=== PATIENT | female | born 2000 | race Caucasian/White ===

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

== ENCOUNTER 2020-03-10 16:55 | Emergency (ER) | payer OTHER ==
[2020-03-10 17:18] VITALS: BP 125/69; PULSE 116; RESP 18; TEMP 98.8
[2020-03-10] MEDS ORDERED: ONDANSETRON 4 MG/2 ML VIAL IVP STA (17:26)
[2020-03-10] MEDS ORDERED: CAPSAICIN 0.025% CREAM 60 GM TUBE TOPICAL STA (17:26)
[2020-03-10] MEDS ORDERED: SODIUM CHLORIDE 0.9% 1,000 ML IV ONE (17:26)
[2020-03-10] MEDS ORDERED: LORazepam 2 MG/ML INJ IV STA (17:26)
[2020-03-10] MEDS ORDERED: PANTOPRAZOLE 40 MG/10 ML VIAL IVP STA (17:27)
[2020-03-10] MEDS ORDERED: SODIUM CHLORIDE 0.9% 1,000 ML IV SCH (17:30)
--- NOTE | 2020-03-10 17:57 | ED ---
Abdominal Pain HPI - General Chief Complaint: Abdominal Pain Stated Complaint: Vomiting/nausea/syncope Time Seen by Provider: 03/10/20 17:20 Source: patient Mode of arrival: ambulatory Limitations: no limitations - History of Present Illness Initial Comments: 19yo female presenting for cc of vomiting. pt states for the past year she has has vomiting episodes on and off. Patient states she began vomiting this morning she states her throat hurts from vomiting she states it looks like bile she denies blood in her vomit. Patient denies localized abdominal pain fevers. Patient denies . Patient states that she is on dyclomine as prescribed by her GI physician for possible cyclic vomiting syndrome. Patient states she is also on omeprazole.Pt sates she vomited so much she felt like passing out. pt denies chest pain, dyspnea, leg swelling. Patient has no additional complaints. upon arrival she appears well nontoxic on in no acute distress. - Related Data Home Medications Medication Instructions Recorded Confirmed Ibuprofen [Motrin Ib] 400 mg PO Q8H PRN 05/18/19 07/25/19 Norelgestromin/Ethin.estradiol 1 patch TRANSDERM SIMS 05/18/19 07/25/19 [Xulane Patch] Ondansetron Odt [Zofran Odt] 4 mg PO Q8HR 07/20/19 07/25/19 Allergies Allergy/AdvReac Type Severity Reaction Status Date / Time No Known Allergies Allergy Verified 03/10/20 17:18 Review of Systems ROS Statement: Those systems with pertinent positive or pertinent negative responses have been documented in the HPI. ROS Other: All systems not noted in ROS Statement are negative. Past Medical History Past Medical History: GERD/Reflux Additional Past Medical History / Comment(s): Bouts of nausea, vomiting for past year; Constipation, diarrhea alternates. IBS History of Any Multi-Drug Resistant Organisms: None Reported Past Surgical History: No Surgical Hx Reported Past Anesthesia/Blood Transfusion Reactions: No Reported Reaction Additional Past Anesthesia/Blood Transfusion Reaction / Comment(s): no previous anesthesia Past Psychological History: ADD/ADHD, Anxiety, Depression Smoking Status: Never smoker Past Alcohol Use History: None Reported Past Drug Use History: Marijuana - Past Family History Mother Family Medical History: No Reported History General Exam - General Exam Comments Initial Comments: General: The patient is awake and alert Eye: Pupils are equal, round and reactive to light, extra-ocular movements are intact. No nystagmus. There is normal conjunctiva bilaterally. No signs of icterus. Cardiovascular: There is a regular rate and rhythm. No murmur, rub or gallop is appreciated. Respiratory: Lungs are clear to auscultation, respirations are non-labored, breath sounds are equal. No wheezes, stridor, rales, or rhonchi. Gastrointestinal: Soft, non-distended, diffusely tender abdomen without masses or organomegaly noted. There is no rebound or guarding present. Dry heavng Musculoskeletal: Normal ROM, no tenderness. Strength 5/5. Sensation intact. Pulses equal bilaterally 2+. Neurological: A&O x 3. CN II-XII intact grossly, There are no obvious motor or sensory deficits. Coordination appears grossly intact. Speech is normal. Skin: Skin is warm and dry and no rashes or lesions are noted. Psychiatric: Cooperative, appropriate mood & affect, normal judgment. Limitations: no limitations Course Vital Signs 03/10/20 17:14 Temperature 98.8 F Pulse Rate 116 H Respiratory 18 Rate Blood Pressure 125/69 O2 Sat by Pulse 98 Oximetry Medical Decision Making - Medical Decision Making evaluated. exam performed. pt left AMA, did not even begin labs or required further evaluation. pt was gone and had signed paper work before I was aware she even wanted to leave AMA Disposition Clinical Impression: Vomiting Disposition: Left Against Medical Advice Condition: Undetermined Is patient prescribed a controlled substance at d/c from ED?: No Referrals: None,Stated [Primary Care Provider] - 1-2 days Time of Disposition: 17:57
== END 2020-03-10 17:54 | disposition left against medical advice (07) ==
LOC: EC 16:55
DX: R11.10 Vomiting, unspecified (principal); K21.9 Gastro-esophageal reflux disease without esophagitis; Z79.899 Other long term (current) drug therapy; Z53.29 Procedure and treatment not carried out because of patient's decision for other reasons
CPT/HCPCS: 99283

== ENCOUNTER 2020-03-13 08:21 | Emergency (ER) | payer OTHER ==
[2020-03-13 08:28] VITALS: RESP 18; TEMP 98.5
[2020-03-13] MEDS ORDERED: ONDANSETRON 4 MG/2 ML VIAL IVP STA (08:51)
[2020-03-13] MEDS ORDERED: SODIUM CHLORIDE 0.9% 1,000 ML IV STA (08:51)
--- NOTE | 2020-03-13 09:11 | ED ---
Nausea/Vomiting/Diarrhea HPI - General Chief complaint: Nausea/Vomiting/Diarrhea Stated complaint: syncope-revisit Time Seen by Provider: 03/13/20 08:40 Source: patient Mode of arrival: ambulatory Limitations: no limitations - History of Present Illness Initial comments: Patient is a 19-year-old female with history of IBS and GERD, presenting to the emergency Department with complaints of nausea and vomiting since yesterday. Patient states she's been having some diarrhea as well. Patient states she's been taking her GERD medication every morning but forgets to take her medication for diarrhea, I'm assuming is Imodium. She admits to some generalized abdominal cramping, no specific areas of pain. No fever or chills. She is also complaining of right hand pain after she got angry and punched a board last night, and wants this to be checked. She has some bruising and swelling to this area. She denies any previous fractures of her right hand. Patient has no further complaints at this time. She denies any chest pain or shortness of breath. Upon arrival to the ER, her vital signs are stable. - Related Data Home Medications Medication Instructions Recorded Confirmed Norelgestromin/Ethin.estradiol 1 patch TRANSDERM SIMS 05/18/19 03/13/20 [Xulane Patch] Dicyclomine [Bentyl] 10 mg PO QID 03/13/20 03/13/20 Omeprazole [PriLOSEC] 20 mg PO AC-BRKFST 03/13/20 03/13/20 Allergies Allergy/AdvReac Type Severity Reaction Status Date / Time No Known Allergies Allergy Verified 03/13/20 09:26 Review of Systems ROS Statement: Those systems with pertinent positive or pertinent negative responses have been documented in the HPI. ROS Other: All systems not noted in ROS Statement are negative. Past Medical History Past Medical History: GERD/Reflux Additional Past Medical History / Comment(s): Bouts of nausea, vomiting for past year; Constipation, diarrhea alternates. IBS History of Any Multi-Drug Resistant Organisms: None Reported Past Surgical History: No Surgical Hx Reported Past Anesthesia/Blood Transfusion Reactions: No Reported Reaction Additional Past Anesthesia/Blood Transfusion Reaction / Comment(s): no previous anesthesia Past Psychological History: ADD/ADHD, Anxiety, Depression Smoking Status: Never smoker Past Alcohol Use History: None Reported Past Drug Use History: Marijuana - Past Family History Mother Family Medical History: No Reported History General Exam - General Exam Comments Initial Comments: GENERAL: Patient is well-developed and well-nourished. Patient is nontoxic and in no acute distress. HEAD: Atraumatic, normocephalic. EYES: Pupils equal round and reactive to light, extraocular movements intact, sclera anicteric, conjunctiva are normal. Eyelids were unremarkable. ENT: TMs normal, nares patent, oropharynx clear without exudates. Moist mucous membranes. NECK: Normal range of motion, supple without lymphadenopathy or JVD. LUNGS: Unlabored respirations. Breath sounds clear to auscultation bilaterally and equal. No wheezes rales or rhonchi. HEART: Regular rate and rhythm without murmurs, rubs or gallops. ABDOMEN: Generalized abdominal discomfort, no specific area pain. Soft, normoactive bowel sounds. No guarding, no rebound. No masses appreciated. : Deferred MUSCULOSKELETAL: Mild pain with palpation over the fourth and fifth metacarpal, there is some mild swelling and bruising present as well. She has full active right-hand range of motion. Neurovascular intact. Normal extremities with adequate s trength and normal range of motion, no pitting or edema. No clubbing or cyanosis. NEUROLOGICAL: Patient is alert and oriented x 3. Motor and sensory are also intact. Cranial nerves II through XII grossly intact. Symmetrical smile. Normal speech, normal gait. PSYCH: Normal mood, normal affect. SKIN: Warm, Dry, normal turgor, no rashes or lesions noted. Limitations: no limitations Course Vital Signs 03/13/20 03/13/20 08:25 10:00 Temperature 98.5 F Pulse Rate 96 70 Respiratory 18 18 Rate Blood Pressure 125/92 122/78 O2 Sat by Pulse 99 100 Oximetry Medical Decision Making - Medical Decision Making Patient is a 19-year-old female with history of IBS and GERD presenting with nausea and vomiting since yesterday as well as continued diarrhea. She does follow with a GI specialist to this, she forgets to take Imodium for the diarrhea, no hematochezia. No fevers, her vitals are stable. She is also complaining of right hand pain after punching a piece of wood last night. X- rays of the right hand reveal no acute fractures dislocations. Labs show slight leukocytosis at 13.8, this is most likely reactive, hemoglobin is 9.9 which is lower than her baseline, she denies any hematochezia. Rest of her labs are normal, urine shows no evidence of infection, 2+ ketones. I did give patient 1 L bolus of fluids and Zofran, she does report improvement in her symptoms. I did recommend continuing with Imodium for her diarrhea as well as omeprazole for the GERD. I did recommend following up with her GI doctor, Dr. Li. She is in agreement. She is stable for discharge. Return parameters were discussed with the patient she verbalized understanding. Case discussed with Dr. Little. - Lab Data Result diagrams: 03/13/20 08:56 03/13/20 08:56 Lab Results 03/13/20 03/13/20 03/13/20 Range/Units 08:56 08:56 08:56 WBC 13.8 H (4.0-11.0) k/uL RBC 4.50 (3.80-5.40) m/uL Hgb 9.9 L (11.4-16.0) gm/dL Hct 32.7 L (34.0-46.0) % MCV 72.5 L (80.0-100.0) fL MCH 22.1 L (25.0-35.0) pg MCHC 30.4 L (31.0-37.0) g/dL RDW 17.5 H (11.5-15.5) % Plt Count 608 H (150-450) k/uL MPV 6.7 Neutrophils % 83 % Lymphocytes % 9 % Monocytes % 5 % Eosinophils % 1 % Basophils % 0 % Neutrophils # 11.5 H (1.3-7.7) k/uL Lymphocytes # 1.2 (1.0-4.8) k/uL Monocytes # 0.7 (0-1.0) k/uL Eosinophils # 0.1 (0-0.7) k/uL Basophils # 0.0 (0-0.2) k/uL Hypochromasia Marked Poikilocytosis Slight Anisocytosis Slight Microcytosis Moderate Sodium 135 L (137-145) mmol/L Potassium 3.5 (3.5-5.1) mmol/L Chloride 102 (98-107) mmol/L Carbon Dioxide 24 (22-30) mmol/L Anion Gap 9 mmol/L BUN 13 (7-17) mg/dL Creatinine 0.67 (0.52-1.04) mg/dL Est GFR (CKD-EPI)AfAm >90 (>60 ml/min/1.73 sqM) Est GFR (CKD-EPI)NonAf >90 (>60 ml/min/1.73 sqM) Glucose 96 (74-99) mg/dL Calcium 9.3 (8.4-10.2) mg/dL Total Bilirubin 0.5 (0.2-1.3) mg/dL AST 25 (14-36) U/L ALT 17 (4-34) U/L Alkaline Phosphatase 46 (38-126) U/L Total Protein 7.3 (6.3-8.2) g/dL Albumin 4.0 (3.5-5.0) g/dL Urine Color Yellow Urine Appearance Cloudy H (Clear) Urine pH 6.0 (5.0-8.0) Ur Specific [place] 1.022 (1.001-1.035) Urine Protein Trace H (Negative) Urine Glucose (UA) Negative (Negative) Urine Ketones 2+ H (Negative) Urine Blood Negative (Negative) Urine Nitrite Negative (Negative) Urine Bilirubin Negative (Negative) Urine Urobilinogen <2.0 (<2.0) mg/dL Ur Leukocyte Esterase Negative (Negative) Urine RBC 4 (0-5) /hpf Urine WBC 2 (0-5) /hpf Ur Squamous Epith Cells 8 H (0-4) /hpf Urine Bacteria Occasional H (None) /hpf Urine Mucus Few H (None) /hpf Urine HCG, Qual (Not Detectd) 03/13/20 Range/Units 08:56 WBC (4.0-11.0) k/uL RBC (3.80-5.40) m/uL Hgb (11.4-16.0) gm/dL Hct (34.0-46.0) % MCV (80.0-100.0) fL MCH (25.0-35.0) pg MCHC (31.0-37.0) g/dL RDW (11.5-15.5) % Plt Count (150-450) k/uL MPV Neutrophils % % Lymphocytes % % Monocytes % % Eosinophils % % Basophils % % Neutrophils # (1.3-7.7) k/uL Lymphocytes # (1.0-4.8) k/uL Monocytes # (0-1.0) k/uL Eosinophils # (0-0.7) k/uL Basophils # (0-0.2) k/uL Hypochromasia Poikilocytosis Anisocytosis Microcytosis Sodium (137-145) mmol/L Potassium (3.5-5.1) mmol/L Chloride (98-107) mmol/L Carbon Dioxide (22-30) mmol/L Anion Gap mmol/L BUN (7-17) mg/dL Creatinine (0.52-1.04) mg/dL Est GFR (CKD-EPI)AfAm (>60 ml/min/1.73 sqM) Est GFR (CKD-EPI)NonAf (>60 ml/min/1.73 sqM) Glucose (74-99) mg/dL Calcium (8.4-10.2) mg/dL Total Bilirubin (0.2-1.3) mg/dL AST (14-36) U/L ALT (4-34) U/L Alkaline Phosphatase (38-126) U/L Total Protein (6.3-8.2) g/dL Albumin (3.5-5.0) g/dL Urine Color Urine Appearance (Clear) Urine pH (5.0-8.0) Ur Specific [place] (1.001-1.035) Urine Protein (Negative) Urine Glucose (UA) (Negative) Urine Ketones (Negative) Urine Blood (Negative) Urine Nitrite (Negative) Urine Bilirubin (Negative) Urine Urobilinogen (<2.0) mg/dL Ur Leukocyte Esterase (Negative) Urine RBC (0-5) /hpf Urine WBC (0-5) /hpf Ur Squamous Epith Cells (0-4) /hpf Urine Bacteria (None) /hpf Urine Mucus (None) /hpf Urine HCG, Qual Not Detected (Not Detectd) Disposition Clinical Impression: Dehydration, Vomiting Disposition: HOME SELF-CARE Condition: Stable Instructions (If sedation given, give patient instructions): Acute Nausea and Vomiting (ED) Additional Instructions: Please return to the Emergency Department if symptoms worsen or any other concerns. May take zofran for additional nausea. Remember to take your home meds. Follow-up with your GI specialist as discussed. Is patient prescribed a controlled substance at d/c from ED?: No Referrals: None,Stated [Primary Care Provider] - 1-2 days Yisel Li MD [STAFF PHYSICIAN] - 1-2 days
[2020-03-13 09:14] LABS: Anisocytosis Slight; Basophils % (A) 0 %; Eosinophils # (A) 0.1 k/uL (0-0.7); Eosinophils % (A) 1 %; HCT 32.7 % (34.0-46.0); HGB 9.9 gm/dL (11.4-16.0); Hypochromasia Marked; Lymphocytes # (A) 1.2 k/uL (1.0-4.8); Lymphocytes % (A) 9 %; MCH 22.1 pg (25.0-35.0); MCHC 30.4 g/dL (31.0-37.0); MCV 72.5 fL (80.0-100.0); Mean Platelet Volume 6.7; Microcytosis Moderate; Monocytes # (A) 0.7 k/uL (0-1.0); Monocytes % (A) 5 %; Neutrophils # (A) 11.5 k/uL (1.3-7.7); Neutrophils % (A) 83 %; Platelet Count 608 k/uL (150-450); Poikilocytosis Slight; RDW 17.5 % (11.5-15.5); WBC 13.8 k/uL (4.0-11.0)
[2020-03-13 09:27] LABS: Appearance,Urine Cloudy (Clear); Bacteria,Urine Occasional /hpf; Bilirubin,Urine Negative (Negative); Blood,Urine Negative (Negative); Color,Urine Yellow; Glucose,Urine (UA) Negative (Negative); Ketones,Urine 2+ (Negative); Leukocyte Esterase,Urine Negative (Negative); Mucus,Urine Few /hpf; Nitrite,Urine Negative (Negative); Protein,Urine Trace (Negative); RBC,Urine 4 /hpf (0-5); Specific Gravity,Urine 1.022 (1.001-1.035); Squamous Epithelial Cell,Urine 8 /hpf (0-4); Urobilinogen,Urine <2.0 mg/dL (<2.0); WBC,Urine 2 /hpf (0-5)
[2020-03-13 09:34] LABS: ALT 17 U/L (4-34); AST 25 U/L (14-36); African American GFR (CKD) >90 (>60 ml/min/1.73 sqM); Alkaline Phosphatase 46 U/L (38-126); Anion Gap 9 mmol/L; Blood Urea Nitrogen 13 mg/dL (7-17); Calcium 9.3 mg/dL (8.4-10.2); Carbon Dioxide 24 mmol/L (22-30); Chloride 102 mmol/L (98-107); Glucose 96 mg/dL (74-99); Non-African American GFR(CKD) >90 (>60 ml/min/1.73 sqM); Potassium 3.5 mmol/L (3.5-5.1); Sodium 135 mmol/L (137-145); Total Bilirubin 0.5 mg/dL (0.2-1.3); Total Protein 7.3 g/dL (6.3-8.2)
--- NOTE | 2020-03-13 09:36 | XR ---
EXAMINATION TYPE: XR hand complete RT DATE OF EXAM: 03/13/2020 CLINICAL HISTORY: Pain and swelling after punching injury. TECHNIQUE: Frontal, lateral and oblique images of the right hand are obtained. COMPARISON: None. FINDINGS: Peripheral IV overlies the dorsum at carpal bone level. There is no acute fracture/dislocat ion evident in the right hand with particular attention to the fourth and fifth fingers. The joint sp aces in the right hand appear within normal limits. The overlying soft tissue appears unremarkable. IMPRESSION: There is no acute fracture or dislocation in the right hand.
[2020-03-13] MEDS ORDERED: ONDANSETRON 4 MG ODT STARTER PACK 2 TAB BTL PO STA (10:06)
[2020-03-13 10:27] VITALS: BP 122/78; PULSE 70
== END 2020-03-13 10:23 | disposition home or self-care (01) ==
LOC: EC 08:21
DX: E86.0 Dehydration (principal); R11.2 Nausea with vomiting, unspecified; K58.9 Irritable bowel syndrome, unspecified; R19.7 Diarrhea, unspecified; D72.829 Elevated white blood cell count, unspecified; K21.9 Gastro-esophageal reflux disease without esophagitis; Z79.3 Long term (current) use of hormonal contraceptives; Z79.899 Other long term (current) drug therapy
CPT/HCPCS: 36415; 80053; 85025; 81001; 81025; 73130; 99284; 96374; 96361; J2405; S0119

== ENCOUNTER 2020-04-25 08:40 | Emergency (ER) | payer OTHER ==
[2020-04-25 08:45] VITALS: RESP 18; TEMP 99.2
[2020-04-25] MEDS ORDERED: ONDANSETRON 4 MG/2 ML VIAL IVP STA (09:07)
[2020-04-25] MEDS ORDERED: SODIUM CHLORIDE 0.9% 1,000 ML IV STA (09:07)
--- NOTE | 2020-04-25 09:09 | ED ---
General Adult HPI - General Chief complaint: Nausea/Vomiting/Diarrhea Stated complaint: Dehydration Time Seen by Provider: 04/25/20 08:46 Source: patient, RN notes reviewed Mode of arrival: ambulatory Limitations: no limitations - History of Present Illness Initial comments: 19-year-old female presents to the emergency room for dehydration. Patient sta etienne she has been nauseous and vomiting since this morning. Patient vomited twice. Patient also had an episode of diarrhea. Denies abdominal pain. Denies fevers. Patient states she feels dehydrated. Patient has had this before states that it can come and go. Patient denies any melena or hematochezia. Denies any hematemesis.Patient has no other complaints at this time including shortness of breath, chest pain, abdominal pain, headache, or visual changes. - Related Data Home Medications Medication Instructions Recorded Confirmed Norelgestromin/Ethin.estradiol 1 patch TRANSDERM SIMS 05/18/19 04/25/20 [Xulane Patch] Dicyclomine [Bentyl] 10 mg PO QID 03/13/20 04/25/20 Omeprazole [PriLOSEC] 20 mg PO AC-BRKFST 03/13/20 04/25/20 Previous Rx's Medication Instructions Recorded Ondansetron [Zofran ODT] 4 mg PO Q8HR PRN #15 tab 04/25/20 Allergies Allergy/AdvReac Type Severity Reaction Status Date / Time No Known Allergies Allergy Verified 04/25/20 09:39 Review of Systems ROS Statement: Those systems with pertinent positive or pertinent negative responses have been documented in the HPI. ROS Other: All systems not noted in ROS Statement are negative. Past Medical History Past Medical History: GERD/Reflux Additional Past Medical History / Comment(s): Bouts of nausea, vomiting for past year; Constipation, diarrhea alternates. IBS History of Any Multi-Drug Resistant Organisms: None Reported Past Surgical History: No Surgical Hx Reported Past Anesthesia/Blood Transfusion Reactions: No Reported Reaction Additional Past Anesthesia/Blood Transfusion Reaction / Comment(s): no previous anesthesia Past Psychological History: ADD/ADHD, Anxiety, Depression, PTSD Smoking Status: Never smoker Past Alcohol Use History: None Reported Past Drug Use History: Marijuana - Past Family History Mother Family Medical History: No Reported History General Exam Limitations: no limitations General appearance: alert, in no apparent distress Head exam: Present: atraumatic Eye exam: Present: normal appearance, PERRL, EOMI. Absent: scleral icterus, conjunctival injection ENT exam: Present: normal exam, mucous membranes dry. Absent: mucous membranes moist Neck exam: Present: normal inspection, full ROM. Absent: tenderness Respiratory exam: Present: normal lung sounds bilaterally. Absent: respiratory distress, wheezes Cardiovascular Exam: Present: regular rate, normal rhythm GI/Abdominal exam: Present: soft, normal bowel sounds. Absent: distended, tenderness, guarding, rebound, rigid Course Vital Signs 04/25/20 04/25/20 08:41 10:06 Temperature 99.2 F Pulse Rate 82 75 Respiratory 18 18 Rate Blood Pressure 126/83 129/68 O2 Sat by Pulse 97 100 Oximetry Medical Decision Making - Lab Data Result diagrams: 04/25/20 09:15 04/25/20 09:15 Lab Results 04/25/20 04/25/20 04/25/20 Range/Units 09:15 09:15 09:29 WBC 7.9 (4.0-11.0) k/uL RBC 4.58 (3.80-5.40) m/uL Hgb 9.9 L (11.4-16.0) gm/dL Hct 31.8 L (34.0-46.0) % MCV 69.4 L (80.0-100.0) fL MCH 21.5 L (25.0-35.0) pg MCHC 31.0 (31.0-37.0) g/dL RDW 16.9 H (11.5-15.5) % Plt Count 445 (150-450) k/uL MPV 6.4 Neutrophils % 79 % Lymphocytes % 12 % Monocytes % 4 % Eosinophils % 2 % Basophils % 1 % Neutrophils # 6.2 (1.3-7.7) k/uL Lymphocytes # 1.0 (1.0-4.8) k/uL Monocytes # 0.3 (0-1.0) k/uL Eosinophils # 0.2 (0-0.7) k/uL Basophils # 0.1 (0-0.2) k/uL Hypochromasia Marked Poikilocytosis Slight Anisocytosis Slight Microcytosis Marked Sodium 135 L (137-145) mmol/L Potassium 4.3 (3.5-5.1) mmol/L Chloride 101 (98-107) mmol/L Carbon Dioxide 25 (22-30) mmol/L Anion Gap 9 mmol/L BUN 12 (7-17) mg/dL Creatinine 0.70 (0.52-1.04) mg/dL Est GFR (CKD-EPI)AfAm >90 (>60 ml/min/1.73 sqM) Est GFR (CKD-EPI)NonAf >90 (>60 ml/min/1.73 sqM) Glucose 98 (74-99) mg/dL Calcium 9.6 (8.4-10.2) mg/dL Total Bilirubin 0.4 (0.2-1.3) mg/dL AST 23 (14-36) U/L ALT 16 (4-34) U/L Alkaline Phosphatase 54 (38-126) U/L Total Protein 7.4 (6.3-8.2) g/dL Albumin 4.3 (3.5-5.0) g/dL Amylase 59 (30-110) U/L Lipase 202 (23-300) U/L Urine Color Yellow Urine Appearance Clear (Clear) Urine pH 6.5 (5.0-8.0) Ur Specific [place] 1.025 (1.001-1.035) Urine Protein Trace H (Negative) Urine Glucose (UA) Negative (Negative) Urine Ketones 2+ H (Negative) Urine Blood Negative (Negative) Urine Nitrite Negative (Negative) Urine Bilirubin Negative (Negative) Urine Urobilinogen <2.0 (<2.0) mg/dL Ur Leukocyte Esterase Negative (Negative) Urine HCG, Qual (Not Detectd) 04/25/20 Range/Units 09:29 WBC (4.0-11.0) k/uL RBC (3.80-5.40) m/uL Hgb (11.4-16.0) gm/dL Hct (34.0-46.0) % MCV (80.0-100.0) fL MCH (25.0-35.0) pg MCHC (31.0-37.0) g/dL RDW (11.5-15.5) % Plt Count (150-450) k/uL MPV Neutrophils % % Lymphocytes % % Monocytes % % Eosinophils % % Basophils % % Neutrophils # (1.3-7.7) k/uL Lymphocytes # (1.0-4.8) k/uL Monocytes # (0-1.0) k/uL Eosinophils # (0-0.7) k/uL Basophils # (0-0.2) k/uL Hypochromasia Poikilocytosis Anisocytosis Microcytosis Sodium (137-145) mmol/L Potassium (3.5-5.1) mmol/L Chloride (98-107) mmol/L Carbon Dioxide (22-30) mmol/L Anion Gap mmol/L BUN (7-17) mg/dL Creatinine (0.52-1.04) mg/dL Est GFR (CKD-EPI)AfAm (>60 ml/min/1.73 sqM) Est GFR (CKD-EPI)NonAf (>60 ml/min/1.73 sqM) Glucose (74-99) mg/dL Calcium (8.4-10.2) mg/dL Total Bilirubin (0.2-1.3) mg/dL AST (14-36) U/L ALT (4-34) U/L Alkaline Phosphatase (38-126) U/L Total Protein (6.3-8.2) g/dL Albumin (3.5-5.0) g/dL Amylase (30-110) U/L Lipase (23-300) U/L Urine Color Urine Appearance (Clear) Urine pH (5.0-8.0) Ur Specific [place] (1.001-1.035) Urine Protein (Negative) Urine Glucose (UA) (Negative) Urine Ketones (Negative) Urine Blood (Negative) Urine Nitrite (Negative) Urine Bilirubin (Negative) Urine Urobilinogen (<2.0) mg/dL Ur Leukocyte Esterase (Negative) Urine HCG, Qual Not Detected (Not Detectd) Disposition Clinical Impression: Nausea and vomiting, Diarrhea, Anemia Disposition: HOME SELF-CARE Condition: Good Instructions (If sedation given, give patient instructions): Acute Nausea and Vomiting (ED), Acute Diarrhea (ED) Additional Instructions: Please take Zofran as needed for nausea. Drink plenty of fluids. Follow-up with your doctor in one to 2 days for a check. Discuss finding of anemia with your doctor. If you have any worsening symptoms return to the emergency room. Prescriptions: Ondansetron [Zofran ODT] 4 mg PO Q8HR PRN #15 tab PRN Reason: Nausea Is patient prescribed a controlled substance at d/c from ED?: No Referrals: Kathie Espino MD [REFERRING] - 1-2 days Time of Disposition: 10:48
[2020-04-25 09:27] LABS: Anisocytosis Slight; Basophils # (A) 0.1 k/uL (0-0.2); Basophils % (A) 1 %; Eosinophils # (A) 0.2 k/uL (0-0.7); Eosinophils % (A) 2 %; HCT 31.8 % (34.0-46.0); HGB 9.9 gm/dL (11.4-16.0); Hypochromasia Marked; Lymphocytes % (A) 12 %; MCH 21.5 pg (25.0-35.0); MCV 69.4 fL (80.0-100.0); Mean Platelet Volume 6.4; Microcytosis Marked; Monocytes # (A) 0.3 k/uL (0-1.0); Monocytes % (A) 4 %; Neutrophils # (A) 6.2 k/uL (1.3-7.7); Neutrophils % (A) 79 %; Platelet Count 445 k/uL (150-450); Poikilocytosis Slight; RBC 4.58 m/uL (3.80-5.40); RDW 16.9 % (11.5-15.5); WBC 7.9 k/uL (4.0-11.0)
[2020-04-25 09:40] LABS: ALT 16 U/L (4-34); AST 23 U/L (14-36); African American GFR (CKD) >90 (>60 ml/min/1.73 sqM); Albumin 4.3 g/dL (3.5-5.0); Alkaline Phosphatase 54 U/L (38-126); Amylase 59 U/L (30-110); Anion Gap 9 mmol/L; Blood Urea Nitrogen 12 mg/dL (7-17); Calcium 9.6 mg/dL (8.4-10.2); Carbon Dioxide 25 mmol/L (22-30); Chloride 101 mmol/L (98-107); Glucose 98 mg/dL (74-99); Lipase 202 U/L (23-300); Non-African American GFR(CKD) >90 (>60 ml/min/1.73 sqM); Potassium 4.3 mmol/L (3.5-5.1); Sodium 135 mmol/L (137-145); Total Bilirubin 0.4 mg/dL (0.2-1.3); Total Protein 7.4 g/dL (6.3-8.2)
[2020-04-25 09:46] LABS: Appearance,Urine Clear (Clear); Bilirubin,Urine Negative (Negative); Blood,Urine Negative (Negative); Color,Urine Yellow; Glucose,Urine (UA) Negative (Negative); Ketones,Urine 2+ (Negative); Leukocyte Esterase,Urine Negative (Negative); Nitrite,Urine Negative (Negative); PH, Urine 6.5 (5.0-8.0); Protein,Urine Trace (Negative); Specific Gravity,Urine 1.025 (1.001-1.035); Urobilinogen,Urine <2.0 mg/dL (<2.0)
[2020-04-25 10:11] VITALS: BP 129/68; PULSE 75
== END 2020-04-25 11:00 | disposition home or self-care (01) ==
LOC: EC 08:40
DX: R11.2 Nausea with vomiting, unspecified (principal); R19.7 Diarrhea, unspecified; D64.9 Anemia, unspecified; K21.9 Gastro-esophageal reflux disease without esophagitis; Z79.899 Other long term (current) drug therapy
CPT/HCPCS: 99284; 96374; 96361; 36415; 80053; 82150; 83690; 85025; 81003; 81025; J2405

== ENCOUNTER 2020-05-03 08:19 | Emergency (ER) | payer OTHER ==
[2020-05-03 08:22] VITALS: TEMP 98.5
[2020-05-03] MEDS ORDERED: KETOROLAC 15 MG/ML 1 ML VIAL IVP STA (08:57)
[2020-05-03] MEDS ORDERED: PANTOPRAZOLE 40 MG/10 ML VIAL IVP STA (08:57)
[2020-05-03] MEDS ORDERED: SODIUM CHLORIDE 0.9% 1,000 ML IV STA (08:57)
--- NOTE | 2020-05-03 09:14 | ED ---
Abdominal Pain HPI - General Chief Complaint: Abdominal Pain Stated Complaint: Vomiting Time Seen by Provider: 05/03/20 08:28 Source: patient Mode of arrival: ambulatory Limitations: no limitations - History of Present Illness Initial Comments: Patient is a 19-year-old female presenting to the emergency Department with complaints of lower abdominal pain, nausea and vomiting started yesterday. She guards the pain as cramping in nature, feels like menstrual cramps however she is not near her menstrual cycle. She does have a history of GERD, IBS. No abdominal surgeries and her history. She denies being . She denies any fever or chills. She does admit to some mild diarrhea. She denies any nausea at this time. She has no further complaints at this time. Upon arrival to the ER, her vitals are stable. - Related Data Home Medications Medication Instructions Recorded Confirmed Norelgestromin/Ethin.estradiol 1 patch TRANSDERM DIRECTED 05/18/19 05/03/20 [Xulane Patch] Dicyclomine [Bentyl] 10 mg PO QID PRN 03/13/20 05/03/20 Omeprazole [PriLOSEC] 20 mg PO BID 03/13/20 05/03/20 Previous Rx's Medication Instructions Recorded Ondansetron [Zofran ODT] 4 mg PO Q8HR PRN #15 tab 04/25/20 Ondansetron Odt [Zofran Odt] 4 mg PO Q8HR PRN #10 tab 05/03/20 Allergies Allergy/AdvReac Type Severity Reaction Status Date / Time No Known Allergies Allergy Verified 05/03/20 10:11 Review of Systems ROS Statement: Those systems with pertinent positive or pertinent negative responses have been documented in the HPI. ROS Other: All systems not noted in ROS Statement are negative. Past Medical History Past Medical History: GERD/Reflux Additional Past Medical History / Comment(s): Bouts of nausea, vomiting for past year; Constipation, diarrhea alternates. IBS History of Any Multi-Drug Resistant Organisms: None Reported Past Surgical History: No Surgical Hx Reported Past Anesthesia/Blood Transfusion Reactions: No Reported Reaction Additional Past Anesthesia/Blood Transfusion Reaction / Comment(s): no previous anesthesia Past Psychological History: ADD/ADHD, Anxiety, Depression, PTSD Smoking Status: Never smoker Past Alcohol Use History: None Reported Past Drug Use History: Marijuana - Past Family History Mother Family Medical History: No Reported History General Exam - General Exam Comments Initial Comments: GENERAL: Patient is well-developed and well-nourished. Patient is nontoxic and in no acute distress. HEAD: Atraumatic, normocephalic. EYES: Pupils equal round and reactive to light, extraocular movements intact, sclera anicteric, conjunctiva are normal. Eyelids were unremarkable. ENT: TMs normal, nares patent, oropharynx clear without exudates. Moist mucous membranes. NECK: Normal range of motion, supple without lymphadenopathy or JVD. LUNGS: Unlabored respirations. Breath sounds clear to auscultation bilaterally and equal. No wheezes rales or rhonchi. HEART: Regular rate and rhythm without murmurs, rubs or gallops. ABDOMEN: Soft, mildly tender suprapubic area, normoactive bowel sounds. No guarding, no rebound. No masses appreciated. : Deferred MUSCULOSKELETAL: Normal extremities with adequate strength and normal range of motion, no pitting or edema. No clubbing or cyanosis. NEUROLOGICAL: Patient is alert and oriented x 3. Motor and sensory are also intact. Cranial nerves II through XII grossly intact. Symmetrical smile. Normal speech, normal gait. PSYCH: Normal mood, normal affect. SKIN: Warm, Dry, normal turgor, no rashes or lesions noted. Limitations: no limitations Course Vital Signs 05/03/20 08:20 Temperature 98.5 F Pulse Rate 76 Respiratory 16 Rate Blood Pressure 132/83 O2 Sat by Pulse 99 Oximetry Medical Decision Making - Medical Decision Making Patient is a 19-year-old female here with lower abdominal cramping, nausea and vomiting 1 day. No fevers, her vitals are stable. Patient's labs are stable, normal white count, stable hemoglobin, normal kidney function. Urine is unremarkable. KUB shows and noninjected gas pattern. Discussed with patient this is most likely viral gastroenteritis. Recommended continue to increase water intake, may take Zofran for additional nausea. Patient is stable for discharge. Patient is in agreement with this plan of care. Return parameters were discussed with the patient and they verbalized understanding. Case discussed with Dr. Little. - Lab Data Result diagrams: 05/03/20 09:26 05/03/20 09:26 Lab Results 05/03/20 05/03/20 05/03/20 Range/Units 09:26 09:26 09:26 WBC 7.3 (4.0-11.0) k/uL RBC 4.30 (3.80-5.40) m/uL Hgb 9.1 L (11.4-16.0) gm/dL Hct 30.2 L (34.0-46.0) % MCV 70.3 L (80.0-100.0) fL MCH 21.2 L (25.0-35.0) pg MCHC 30.2 L (31.0-37.0) g/dL RDW 17.2 H (11.5-15.5) % Plt Count 456 H (150-450) k/uL MPV 7.0 Neutrophils % 79 % Lymphocytes % 12 % Monocytes % 5 % Eosinophils % 2 % Basophils % 1 % Neutrophils # 5.8 (1.3-7.7) k/uL Lymphocytes # 0.9 L (1.0-4.8) k/uL Monocytes # 0.3 (0-1.0) k/uL Eosinophils # 0.2 (0-0.7) k/uL Basophils # 0.0 (0-0.2) k/uL Hypochromasia Marked Poikilocytosis Slight Anisocytosis Slight Microcytosis Marked Sodium (137-145) mmol/L Potassium (3.5-5.1) mmol/L Chloride (98-107) mmol/L Carbon Dioxide (22-30) mmol/L Anion Gap mmol/L BUN (7-17) mg/dL Creatinine (0.52-1.04) mg/dL Est GFR (CKD-EPI)AfAm (>60 ml/min/1.73 sqM) Est GFR (CKD-EPI)NonAf (>60 ml/min/1.73 sqM) Glucose (74-99) mg/dL Calcium (8.4-10.2) mg/dL Total Bilirubin (0.2-1.3) mg/dL AST (14-36) U/L ALT (4-34) U/L Alkaline Phosphatase (38-126) U/L Total Protein (6.3-8.2) g/dL Albumin (3.5-5.0) g/dL Amylase (30-110) U/L Lipase (23-300) U/L Urine Color Yellow Urine Appearance Clear (Clear) Urine pH 6.5 (5.0-8.0) Ur Specific [place] 1.013 (1.001-1.035) Urine Protein Negative (Negative) Urine Glucose (UA) Negative (Negative) Urine Ketones Negative (Negative) Urine Blood Negative (Negative) Urine Nitrite Negative (Negative) Urine Bilirubin Negative (Negative) Urine Urobilinogen <2.0 (<2.0) mg/dL Ur Leukocyte Esterase Negative (Negative) Urine HCG, Qual Not Detected (Not Detectd) 05/03/20 Range/Units 09:26 WBC (4.0-11.0) k/uL RBC (3.80-5.40) m/uL Hgb (11.4-16.0) gm/dL Hct (34.0-46.0) % MCV (80.0-100.0) fL MCH (25.0-35.0) pg MCHC (31.0-37.0) g/dL RDW (11.5-15.5) % Plt Count (150-450) k/uL MPV Neutrophils % % Lymphocytes % % Monocytes % % Eosinophils % % Basophils % % Neutrophils # (1.3-7.7) k/uL Lymphocytes # (1.0-4.8) k/uL Monocytes # (0-1.0) k/uL Eosinophils # (0-0.7) k/uL Basophils # (0-0.2) k/uL Hypochromasia Poikilocytosis Anisocytosis Microcytosis Sodium 134 L (137-145) mmol/L Potassium 4.1 (3.5-5.1) mmol/L Chloride 104 (98-107) mmol/L Carbon Dioxide 24 (22-30) mmol/L Anion Gap 6 mmol/L BUN 8 (7-17) mg/dL Creatinine 0.68 (0.52-1.04) mg/dL Est GFR (CKD-EPI)AfAm >90 (>60 ml/min/1.73 sqM) Est GFR (CKD-EPI)NonAf >90 (>60 ml/min/1.73 sqM) Glucose 96 (74-99) mg/dL Calcium 9.2 (8.4-10.2) mg/dL Total Bilirubin 0.3 (0.2-1.3) mg/dL AST 23 (14-36) U/L ALT 14 (4-34) U/L Alkaline Phosphatase 46 (38-126) U/L Total Protein 6.9 (6.3-8.2) g/dL Albumin 3.9 (3.5-5.0) g/dL Amylase 63 (30-110) U/L Lipase 184 (23-300) U/L Urine Color Urine Appearance (Clear) Urine pH (5.0-8.0) Ur Specific [place] (1.001-1.035) Urine Protein (Negative) Urine Glucose (UA) (Negative) Urine Ketones (Negative) Urine Blood (Negative) Urine Nitrite (Negative) Urine Bilirubin (Negative) Urine Urobilinogen (<2.0) mg/dL Ur Leukocyte Esterase (Negative) Urine HCG, Qual (Not Detectd) Disposition Clinical Impression: Abdominal cramping, Nausea & vomiting Disposition: HOME SELF-CARE Condition: Stable Instructions (If sedation given, give patient instructions): Gastroenteritis (ED) Additional Instructions: Please return to the Emergency Department if symptoms worsen or any other concerns. Take Zofran for additional nausea. Recommended increasing water intake. Please follow-up with your regular doctor Prescriptions: Ondansetron Odt [Zofran Odt] 4 mg PO Q8HR PRN #10 tab PRN Reason: Nausea Is patient prescribed a controlled substance at d/c from ED?: No Referrals: None,Stated [Primary Care Provider] - 1-2 days
[2020-05-03 09:33] LABS: Anisocytosis Slight; Basophils % (A) 1 %; Eosinophils # (A) 0.2 k/uL (0-0.7); Eosinophils % (A) 2 %; HCT 30.2 % (34.0-46.0); HGB 9.1 gm/dL (11.4-16.0); Hypochromasia Marked; Lymphocytes # (A) 0.9 k/uL (1.0-4.8); Lymphocytes % (A) 12 %; MCH 21.2 pg (25.0-35.0); MCHC 30.2 g/dL (31.0-37.0); MCV 70.3 fL (80.0-100.0); Microcytosis Marked; Monocytes # (A) 0.3 k/uL (0-1.0); Monocytes % (A) 5 %; Neutrophils # (A) 5.8 k/uL (1.3-7.7); Neutrophils % (A) 79 %; Platelet Count 456 k/uL (150-450); Poikilocytosis Slight; RDW 17.2 % (11.5-15.5); WBC 7.3 k/uL (4.0-11.0)
[2020-05-03 09:34] LABS: Appearance,Urine Clear (Clear); Bilirubin,Urine Negative (Negative); Blood,Urine Negative (Negative); Color,Urine Yellow; Glucose,Urine (UA) Negative (Negative); Ketones,Urine Negative (Negative); Leukocyte Esterase,Urine Negative (Negative); Nitrite,Urine Negative (Negative); PH, Urine 6.5 (5.0-8.0); Protein,Urine Negative (Negative); Specific Gravity,Urine 1.013 (1.001-1.035); Urobilinogen,Urine <2.0 mg/dL (<2.0)
[2020-05-03 09:47] LABS: ALT 14 U/L (4-34); AST 23 U/L (14-36); African American GFR (CKD) >90 (>60 ml/min/1.73 sqM); Albumin 3.9 g/dL (3.5-5.0); Alkaline Phosphatase 46 U/L (38-126); Amylase 63 U/L (30-110); Anion Gap 6 mmol/L; Blood Urea Nitrogen 8 mg/dL (7-17); Calcium 9.2 mg/dL (8.4-10.2); Carbon Dioxide 24 mmol/L (22-30); Chloride 104 mmol/L (98-107); Glucose 96 mg/dL (74-99); Lipase 184 U/L (23-300); Non-African American GFR(CKD) >90 (>60 ml/min/1.73 sqM); Potassium 4.1 mmol/L (3.5-5.1); Sodium 134 mmol/L (137-145); Total Bilirubin 0.3 mg/dL (0.2-1.3); Total Protein 6.9 g/dL (6.3-8.2)
--- NOTE | 2020-05-03 09:50 | XR ---
EXAMINATION TYPE: XR KUB DATE OF EXAM: 05/03/2020 9:44 AM CLINICAL HISTORY: Abdominal pain with nausea and vomiting. TECHNIQUE: Two Upright KUB images of the abdomen are obtained. COMPARISON: None. FINDINGS: Some paucity of bowel gas. Air-fluid level in nondistended stomach. Patchy gas in nondisten ded bowel loops in the pelvis. There is no visceromegaly, pneumoperitoneum, or abnormal calcification appreciated. The lung bases are clear and the osseous structures are intact. IMPRESSION: Overall nonspecific but strongly favor nonobstructive bowel gas pattern.
[2020-05-03 11:14] VITALS: BP 125/66; PULSE 75; RESP 18
== END 2020-05-03 10:42 | disposition home or self-care (01) ==
LOC: EC 08:19
DX: R10.30 Lower abdominal pain, unspecified (principal); R11.2 Nausea with vomiting, unspecified; K21.9 Gastro-esophageal reflux disease without esophagitis; F32.9 Major depressive disorder, single episode, unspecified; F12.90 Cannabis use, unspecified, uncomplicated
CPT/HCPCS: 36415; 80053; 82150; 83690; 85025; 81003; 81025; 74018; 99284; 96374; 96375; J1885; C9113; 99285

== ENCOUNTER 2020-05-22 07:29 | Emergency (ER) | payer OTHER ==
[2020-05-22 07:35] VITALS: RESP 18
[2020-05-22] MEDS ORDERED: diphenhydrAMINE 50 MG/ML 1 ML VIAL IVP STA (07:46)
[2020-05-22] MEDS ORDERED: ONDANSETRON 4 MG/2 ML VIAL IVP STA (07:46)
[2020-05-22] MEDS ORDERED: SODIUM CHLORIDE 0.9% 2,000 ML IV STA (07:46)
[2020-05-22 08:04] LABS: Anisocytosis Slight; Basophils # (A) 0.1 k/uL (0-0.2); Basophils % (A) 1 %; Eosinophils # (A) 0.1 k/uL (0-0.7); Eosinophils % (A) 1 %; HCT 32.6 % (34.0-46.0); HGB 9.8 gm/dL (11.4-16.0); Hypochromasia Marked; Lymphocytes # (A) 1.1 k/uL (1.0-4.8); Lymphocytes % (A) 13 %; MCH 21.1 pg (25.0-35.0); MCHC 30.1 g/dL (31.0-37.0); MCV 69.9 fL (80.0-100.0); Mean Platelet Volume 6.8; Microcytosis Marked; Monocytes # (A) 0.5 k/uL (0-1.0); Monocytes % (A) 5 %; Neutrophils # (A) 7.2 k/uL (1.3-7.7); Neutrophils % (A) 79 %; Platelet Count 498 k/uL (150-450); Poikilocytosis Slight; RBC 4.67 m/uL (3.80-5.40); RDW 17.3 % (11.5-15.5); WBC 9.1 k/uL (4.0-11.0)
[2020-05-22 08:21] LABS: ALT 17 U/L (4-34); AST 30 U/L (14-36); African American GFR (CKD) >90 (>60 ml/min/1.73 sqM); Albumin 4.3 g/dL (3.5-5.0); Alkaline Phosphatase 57 U/L (38-126); Amylase 57 U/L (30-110); Anion Gap 13 mmol/L; Blood Urea Nitrogen 8 mg/dL (7-17); Calcium 9.5 mg/dL (8.4-10.2); Carbon Dioxide 20 mmol/L (22-30); Chloride 106 mmol/L (98-107); Glucose 125 mg/dL (74-99); Lipase 234 U/L (23-300); Non-African American GFR(CKD) >90 (>60 ml/min/1.73 sqM); Potassium 4.3 mmol/L (3.5-5.1); Sodium 139 mmol/L (137-145); Total Bilirubin 0.3 mg/dL (0.2-1.3); Total Protein 7.6 g/dL (6.3-8.2)
--- NOTE | 2020-05-22 08:40 | ED ---
Abdominal Pain HPI - General Chief Complaint: Abdominal Pain Stated Complaint: Vomiting Time Seen by Provider: 05/22/20 07:37 Source: patient, RN notes reviewed Mode of arrival: wheelchair Limitations: no limitations - History of Present Illness Initial Comments: This a 19-year-old female presents emergency Department chief complaint of nausea vomiting abdominal pain. This is a recurrent issue. Mother states his has been usually associated with her control patches. She recently removed her patch because he thought this was causing her symptoms. Patient states she has some nausea and one episode of vomiting yesterday throughout the night she's been vomiting. Patient denies any fevers or chills no chest pain or shortness of breath. Patient states she has passed out episodes so she is aware the symptoms. Patient denies any headache, blurred vision, dizziness or focal weakness. - Related Data Home Medications Medication Instructions Recorded Confirmed Norelgestromin/Ethin.estradiol 1 patch TRANSDERM DIRECTED 05/18/19 05/22/20 [Xulane Patch] Dicyclomine [Bentyl] 10 mg PO QID PRN 03/13/20 05/22/20 Omeprazole [PriLOSEC] 20 mg PO BID 03/13/20 05/22/20 Previous Rx's Medication Instructions Recorded Ondansetron Odt [Zofran Odt] 4 mg PO Q8HR PRN #10 tab 05/22/20 Allergies Allergy/AdvReac Type Severity Reaction Status Date / Time No Known Allergies Allergy Verified 05/22/20 08:39 Review of Systems ROS Statement: Those systems with pertinent positive or pertinent negative responses have been documented in the HPI. ROS Other: All systems not noted in ROS Statement are negative. Past Medical History Past Medical History: GERD/Reflux Additional Past Medical History / Comment(s): Bouts of nausea, vomiting for past year; Constipation, diarrhea alternates. IBS History of Any Multi-Drug Resistant Organisms: None Reported Past Surgical History: No Surgical Hx Reported Past Anesthesia/Blood Transfusion Reactions: No Reported Reaction Additional Past Anesthesia/Blood Transfusion Reaction / Comment(s): no previous anesthesia Past Psychological History: ADD/ADHD, Anxiety, Depression, PTSD Smoking Status: Never smoker Past Alcohol Use History: None Reported Past Drug Use History: Marijuana - Past Family History Mother Family Medical History: No Reported History General Exam Limitations: no limitations General appearance: alert, in no apparent distress Head exam: Present: atraumatic, normocephalic, normal inspection Eye exam: Present: normal appearance, PERRL, EOMI. Absent: scleral icterus, conjunctival injection, periorbital swelling ENT exam: Present: normal exam, normal oropharynx, mucous membranes moist Neck exam: Present: normal inspection, full ROM. Absent: tenderness, meningismus, lymphadenopathy Respiratory exam: Present: normal lung sounds bilaterally. Absent: respiratory distress, wheezes, rales, rhonchi, stridor Cardiovascular Exam: Present: normal rhythm, tachycardia, normal heart sounds. Absent: systolic murmur, diastolic murmur, rubs, gallop, clicks GI/Abdominal exam: Present: soft, tenderness, normal bowel sounds. Absent: distended, guarding, rebound, rigid Neurological exam: Present: alert, oriented X3, CN II-XII intact Skin exam: Present: warm, dry, intact, normal color. Absent: rash Course Vital Signs 05/22/20 07:33 Temperature 98.7 F Pulse Rate 117 H Respiratory 18 Rate Blood Pressure 128/86 O2 Sat by Pulse 98 Oximetry - Reevaluation(s) Reevaluation #1: 05/22/20 10:15 I went back back into the room to reevaluate the patient updated on results currently. Patient's was found to have her finger in her mouth and throat causing herself to vomit. Patient also admitted to drinking fluids in the room Medical Decision Making - Medical Decision Making 19 rolled present for nausea vomiting. Patient did have some emesis upon arrival though patient was found to be making herself you can the room. I did have discussion with the patient about this. She informed the nurse that she wants to be discharged and go home. I do not have all of her labs back this time. She'll be discharged with Zofran return parameters were discussed. - Lab Data Result diagrams: 05/22/20 07:46 05/22/20 07:46 Lab Results 05/22/20 05/22/20 05/22/20 Range/Units 07:46 07:46 07:46 WBC 9.1 (4.0-11.0) k/uL RBC 4.67 (3.80-5.40) m/uL Hgb 9.8 L (11.4-16.0) gm/dL Hct 32.6 L (34.0-46.0) % MCV 69.9 L (80.0-100.0) fL MCH 21.1 L (25.0-35.0) pg MCHC 30.1 L (31.0-37.0) g/dL RDW 17.3 H (11.5-15.5) % Plt Count 498 H (150-450) k/uL MPV 6.8 Neutrophils % 79 % Lymphocytes % 13 % Monocytes % 5 % Eosinophils % 1 % Basophils % 1 % Neutrophils # 7.2 (1.3-7.7) k/uL Lymphocytes # 1.1 (1.0-4.8) k/uL Monocytes # 0.5 (0-1.0) k/uL Eosinophils # 0.1 (0-0.7) k/uL Basophils # 0.1 (0-0.2) k/uL Hypochromasia Marked Poikilocytosis Slight Anisocytosis Slight Microcytosis Marked Sodium (137-145) mmol/L Potassium (3.5-5.1) mmol/L Chloride (98-107) mmol/L Carbon Dioxide (22-30) mmol/L Anion Gap mmol/L BUN (7-17) mg/dL Creatinine (0.52-1.04) mg/dL Est GFR (CKD-EPI)AfAm (>60 ml/min/1.73 sqM) Est GFR (CKD-EPI)NonAf (>60 ml/min/1.73 sqM) Glucose (74-99) mg/dL Calcium (8.4-10.2) mg/dL Total Bilirubin (0.2-1.3) mg/dL AST (14-36) U/L ALT (4-34) U/L Alkaline Phosphatase (38-126) U/L Total Protein (6.3-8.2) g/dL Albumin (3.5-5.0) g/dL Amylase (30-110) U/L Lipase (23-300) U/L Urine Color Light Yellow Urine Appearance Clear (Clear) Urine pH 7.5 (5.0-8.0) Ur Specific [place] 1.011 (1.001-1.035) Urine Protein Negative (Negative) Urine Glucose (UA) Negative (Negative) Urine Ketones Negative (Negative) Urine Blood Negative (Negative) Urine Nitrite Negative (Negative) Urine Bilirubin Negative (Negative) Urine Urobilinogen <2.0 (<2.0) mg/dL Ur Leukocyte Esterase Negative (Negative) Urine HCG, Qual Not Detected (Not Detectd) 05/22/20 Range/Units 07:46 WBC (4.0-11.0) k/uL RBC (3.80-5.40) m/uL Hgb (11.4-16.0) gm/dL Hct (34.0-46.0) % MCV (80.0-100.0) fL MCH (25.0-35.0) pg MCHC (31.0-37.0) g/dL RDW (11.5-15.5) % Plt Count (150-450) k/uL MPV Neutrophils % % Lymphocytes % % Monocytes % % Eosinophils % % Basophils % % Neutrophils # (1.3-7.7) k/uL Lymphocytes # (1.0-4.8) k/uL Monocytes # (0-1.0) k/uL Eosinophils # (0-0.7) k/uL Basophils # (0-0.2) k/uL Hypochromasia Poikilocytosis Anisocytosis Microcytosis Sodium 139 (137-145) mmol/L Potassium 4.3 (3.5-5.1) mmol/L Chloride 106 (98-107) mmol/L Carbon Dioxide 20 L (22-30) mmol/L Anion Gap 13 mmol/L BUN 8 (7-17) mg/dL Creatinine 0.76 (0.52-1.04) mg/dL Est GFR (CKD-EPI)AfAm >90 (>60 ml/min/1.73 sqM) Est GFR (CKD-EPI)NonAf >90 (>60 ml/min/1.73 sqM) Glucose 125 H (74-99) mg/dL Calcium 9.5 (8.4-10.2) mg/dL Total Bilirubin 0.3 (0.2-1.3) mg/dL AST 30 (14-36) U/L ALT 17 (4-34) U/L Alkaline Phosphatase 57 (38-126) U/L Total Protein 7.6 (6.3-8.2) g/dL Albumin 4.3 (3.5-5.0) g/dL Amylase 57 (30-110) U/L Lipase 234 (23-300) U/L Urine Color Urine Appearance (Clear) Urine pH (5.0-8.0) Ur Specific [place] (1.001-1.035) Urine Protein (Negative) Urine Glucose (UA) (Negative) Urine Ketones (Negative) Urine Blood (Negative) Urine Nitrite (Negative) Urine Bilirubin (Negative) Urine Urobilinogen (<2.0) mg/dL Ur Leukocyte Esterase (Negative) Urine HCG, Qual (Not Detectd) Disposition Clinical Impression: Nausea and vomiting Disposition: HOME SELF-CARE Condition: Stable Instructions (If sedation given, give patient instructions): Acute Nausea and Vomiting (ED) Additional Instructions: Please return to the Emergency Department if symptoms worsen or any other concerns. Prescriptions: Ondansetron Odt [Zofran Odt] 4 mg PO Q8HR PRN #10 tab PRN Reason: Nausea Is patient prescribed a controlled substance at d/c from ED?: No Referrals: None,Stated [Primary Care Provider] - 1-2 days Time of Disposition: 10:35
[2020-05-22] MEDS ORDERED: LORazepam 2 MG/ML INJ IV STA (10:11)
[2020-05-22 10:16] LABS: Appearance,Urine Clear (Clear); Bilirubin,Urine Negative (Negative); Blood,Urine Negative (Negative); Color,Urine Light Yellow; Glucose,Urine (UA) Negative (Negative); Ketones,Urine Negative (Negative); Leukocyte Esterase,Urine Negative (Negative); Nitrite,Urine Negative (Negative); PH, Urine 7.5 (5.0-8.0); Protein,Urine Negative (Negative); Specific Gravity,Urine 1.011 (1.001-1.035); Urobilinogen,Urine <2.0 mg/dL (<2.0)
[2020-05-22 10:36] LABS: Amphetamine Screen,Urine Not Detected (NotDetected); Barbiturate Screen,Urine Not Detected (NotDetected); Benzodiazepines Screen,Urine Not Detected (NotDetected); Cocaine Screen,Urine Not Detected (NotDetected); Methadone Screen, Urine Not Detected (NotDetected); Opiate Screen,Urine Not Detected (NotDetected); Oxycodone Screen, Urine Not Detected (NotDetected); Phencyclidine Screen,Urine Not Detected (NotDetected); Tricyclic Antidepressant,Urine Not Detected (NotDetected); Urn Cannabinoid Scrn Detected (NotDetected)
[2020-05-22 10:48] VITALS: BP 135/80; PULSE 82; TEMP 98.5
== END 2020-05-22 10:45 | disposition home or self-care (01) ==
LOC: EC 07:29
DX: R11.2 Nausea with vomiting, unspecified (principal); K21.9 Gastro-esophageal reflux disease without esophagitis; Z79.3 Long term (current) use of hormonal contraceptives; Z79.899 Other long term (current) drug therapy
CPT/HCPCS: 36415; 80053; 82150; 83690; 85025; 81003; 81025; 80306; 99284; 96374; 96375 ×2; 96361 ×3; J1200; J2405; J1790

== ENCOUNTER 2020-07-06 15:42 | Emergency (ER) | payer OTHER ==
[2020-07-06 15:50] VITALS: TEMP 98.3
[2020-07-06] MEDS ORDERED: IBUPROFEN 600 MG TAB PO STA (16:16)
--- NOTE | 2020-07-06 16:34 | XR ---
Right hand. HISTORY: Pain following trauma. COMPARISON: 03/13/2020. TECHNIQUE: 3 views the right hand were obtained. FINDINGS: There is no fracture, dislocation, intraosseous or intra-articular abnormality. There is no radiopaqu e foreign body or abnormal soft tissue calcification. IMPRESSION: No significant abnormality seen.
[2020-07-06 16:52] VITALS: RESP 18
--- NOTE | 2020-07-06 17:44 | ED ---
General Adult HPI - General Chief complaint: Extremity Injury, Upper Stated complaint: rt hand injury Time Seen by Provider: 07/06/20 15:51 Source: patient, RN notes reviewed Mode of arrival: ambulatory Limitations: no limitations - History of Present Illness Initial comments: 19-year-old female presents to the emergency room for right hand pain. Patient states that she punched a wall just prior to arrival because she became frustrated. Patient denies punching any humans or possibility of fight bites. Patient states it is painful to move her hand and swollen. Patient denies any other injuries.Patient has no other complaints at this time including shortness of breath, chest pain, abdominal pain, nausea or vomiting, headache, or visual changes. - Related Data Home Medications Medication Instructions Recorded Confirmed Norelgestromin/Ethin.estradiol 1 patch TRANSDERM DIRECTED 05/18/19 05/22/20 [Xulane Patch] Dicyclomine [Bentyl] 10 mg PO QID PRN 03/13/20 05/22/20 Omeprazole [PriLOSEC] 20 mg PO BID 03/13/20 05/22/20 Previous Rx's Medication Instructions Recorded Ondansetron Odt [Zofran Odt] 4 mg PO Q8HR PRN #10 tab 05/22/20 Allergies Allergy/AdvReac Type Severity Reaction Status Date / Time No Known Allergies Allergy Verified 07/06/20 15:50 Review of Systems ROS Statement: Those systems with pertinent positive or pertinent negative responses have been documented in the HPI. ROS Other: All systems not noted in ROS Statement are negative. Past Medical History Past Medical History: GERD/Reflux Additional Past Medical History / Comment(s): Bouts of nausea, vomiting for past year; Constipation, diarrhea alternates. IBS History of Any Multi-Drug Resistant Organisms: None Reported Past Surgical History: No Surgical Hx Reported Past Anesthesia/Blood Transfusion Reactions: No Reported Reaction Additional Past Anesthesia/Blood Transfusion Reaction / Comment(s): no previous anesthesia Past Psychological History: ADD/ADHD, Anxiety, Depression, PTSD Smoking Status: Never smoker Past Alcohol Use History: None Reported Past Drug Use History: Marijuana - Past Family History Mother Family Medical History: No Reported History General Exam Limitations: no limitations General appearance: alert Head exam: Present: atraumatic, normocephalic, normal inspection Eye exam: Present: normal appearance, PERRL, EOMI. Absent: scleral icterus, conjunctival injection, periorbital swelling ENT exam: Present: normal exam, mucous membranes moist Neck exam: Present: normal inspection. Absent: tenderness, meningismus, lymphadenopathy Respiratory exam: Present: normal lung sounds bilaterally. Absent: respiratory distress, wheezes, rales, rhonchi, stridor Cardiovascular Exam: Present: regular rate, normal rhythm, normal heart sounds. Absent: systolic murmur, diastolic murmur, rubs, gallop, clicks Extremities exam: Present: tenderness (Tenderness to the third fourth and fifth metacarpal heads of the right hand.), normal capillary refill (cap refill less than 2 seconds, radial pulse 2+ in the right upper extremity.), joint swelling (Patient does have mild edema noted of the third fourth and fifth metacarpal heads. small abrasions. No lacerations.), other (Sensation intact in the right hand.). Absent: full ROM (Patient has limited range of motion of the third fourth and fifth digits of the right hand secondary to pain however flexor and extensor mechanisms are intact.), pedal edema, calf tenderness Course Vital Signs 07/06/20 07/06/20 15:44 16:50 Temperature 98.3 F Pulse Rate 116 H Respiratory 17 18 Rate Blood Pressure 119/77 O2 Sat by Pulse 100 Oximetry Procedures - Orthopedic Splinting/Casting Injury #1 Side: right Upper Extremity Injury Location: short arm Upper Extremity Immobilizer: volar splint Additional Comments: Neurovascular status intact after splint performed. Medical Decision Making - Medical Decision Making X-ray of the right hand shows no significant abnormality. Review of an image and report was performed. Given edema and pain patient was splinted due to concern for occult fracture. Did an orthopedic follow-up. Recommend she return here for any worsening symptoms. - Radiology Data Radiology results: report reviewed, image reviewed Disposition Clinical Impression: Contusion of hand, right Disposition: HOME SELF-CARE Condition: Good Instructions (If sedation given, give patient instructions): Contusion in Adults (ED) Additional Instructions: Please take Motrin and Tylenol for pain. Rest ice and elevate the hand. Keep splint dry. Follow-up with orthopedics. Return for any worsening symptoms. Is patient prescribed a controlled substance at d/c from ED?: No Referrals: Florentino Prasad MD [STAFF PHYSICIAN] - 1-2 days Time of Disposition: 17:43
[2020-07-06 17:53] VITALS: BP 123/75; PULSE 87
== END 2020-07-06 17:53 | disposition home or self-care (01) ==
LOC: EC 15:42
DX: S60.221A Contusion of right hand, initial encounter (principal); S60.414A Abrasion of right ring finger, initial encounter; S60.416A Abrasion of right little finger, initial encounter; W22.01XA Walked into wall, initial encounter; K21.9 Gastro-esophageal reflux disease without esophagitis; F12.90 Cannabis use, unspecified, uncomplicated
CPT/HCPCS: 29125; 99283

== ENCOUNTER 2020-09-04 | Emergency (ER) | payer OTHER | END 2020-09-04 08:15 | disposition left against medical advice (07) | CPT/HCPCS: 36415; 93005; 80053; 83605; 85025; 81001; 81025; 72125; 70450; 99285; 96374; 96375; 96361; J2060; J2405; J1885; C9113 ==

== ENCOUNTER 2021-12-12 11:22 | Observation (INO) | payer OTHER ==
[2021-12-11 11:17] VITALS: BMI 25.2
[2021-12-12] MEDS: LACTATED RINGERS 1,000 ML IV SCH (12:56)
[2021-12-12] MEDS ORDERED: PROPOFOL 10 MG/ML 20 ML VIAL IV ONE (13:43)
--- NOTE | 2021-12-12 14:04 | P.PCN ---
Date of Procedure: 12/12/21 Procedure(s) Performed: BRIEF HISTORY: Patient is a 21-year-old pleasant white female scheduled for an elective colonoscopy as a part of chronic diarrhea and abdominal pain for the last several months duration. PROCEDURE PERFORMED: Colonoscopy. PREOPERATIVE DIAGNOSIS: Chronic diarrhea and abdominal pain of several months duration. IV sedation per Anesthesia. PROCEDURE: After informed consent was obtained, the patient, was brought into the endoscopy unit. IV sedation was administered by Anesthesia under continuous monitoring. Digital rectal examination was normal. Initially the Olympus CF-160 flexible video colonoscope was then inserted in the rectum, gradually advanced into the cecum without any difficulty. Careful examination was performed as the scope was gradually being withdrawn. Ileocecal valve and the appendiceal orifice were visualized and appeared normal. Prep was fair. Terminal ileum was intubated and there was evidence of lymphoid hyperplasia noted. Mucosa of the cecum, ascending colon, transverse colon, descending colon, sigmoid colon, and rectum appeared normal. Biopsies were done from ascending and descending colon to rule out microscopic/collagenous colitis. Retroflexion was performed in the rectum and no lesions were seen. The patient tolerated the procedure well. IMPRESSION: Normal-appearing colon from rectum to cecum with no evidence of colorectal neoplasia RECOMMENDATIONS: Findings of this examination were discussed with the patient as well as a family. She was advised to follow with the biopsy results and she'll be seen in office in 2-3 weeks.
[2021-12-12] MEDS ORDERED: ONDANSETRON 4 MG/2 ML VIAL ONE (14:10)
[2021-12-12] MEDS ORDERED: ONDANSETRON 4 MG/2 ML VIAL IVP ONE ×2 (14:13→14:14)
[2021-12-12] MEDS ORDERED: MIDAZOLAM 2 MG/2 ML VIAL IVP ONE (14:20)
[2021-12-12] MEDS ORDERED: LORazepam 2 MG/ML INJ IV ONE ×2 (14:22→14:28)
[2021-12-12] MEDS ORDERED: MIDAZOLAM 2 MG/2 ML VIAL IV ONE (14:34)
[2021-12-12] MEDS ORDERED: NALOXONE 0.4 MG/ML 1 ML VIAL IV PRN (15:00)
[2021-12-12] MEDS ORDERED: bisacodyL 5 MG TABLET.DR PO PRN (15:00)
[2021-12-12] MEDS ORDERED: HYDROcodone/APAP 5-325MG 1 EACH TAB PO PRN (15:00)
[2021-12-12] MEDS ORDERED: MELATONIN 3 MG TABLET PO PRN (15:00)
[2021-12-12] MEDS ORDERED: LORazepam 1 MG/0.5 ML VIAL IV PRN (15:00)
[2021-12-12] MEDS ORDERED: ACETAMINOPHEN TAB 325 MG TAB PO PRN (15:00)
[2021-12-12] MEDS ORDERED: PROCHLORPERAZINE INJ 10 MG/2 ML VIAL IVP STA ×2 (15:12→15:43)
[2021-12-12] MEDS ORDERED: hydrOXYzine HCL 50 MG/ML 1 ML VIAL IM PRN (15:20)
--- NOTE | 2021-12-12 15:36 | P.CNNES ---
History of Present Illness Consult date: 12/12/21 Requesting physician: Juli Marie Reason for Consult: status epilepticus History of Present Illness: This is a 21 year-old young woman, seizure, diarrhea, anxiety who initially had outpatient colonscopy and after the procedure had multiple seizure-like activities. Some of the history is obtained from the patient's mother who is at bedside. After Colonscopy while patient was in recovery area she had 3 seizure-like episode and according to nursing staff she had shaking of all extremities and has not regained consciousness between. She had received total of 2 mg of Ativan and 4mg of Versed. According to the mother she had a seizure-like episode about 3 weeks ago and was at [facility] and so she was shipped to [place] for escalation of care and per mother she was told she was fine and her episode was due to anxiety. She is not on any antiepileptic drug and neurology team at [facility] has not placed since felt was due to anxiety. Her mother denies patient uses alcohol or any illicit drug use. She uses marijuana. Mother has history of non-epileptic seizures. Review of Systems Review of system is limited but the pertinent positive and negative as per HPI. Past Medical History Past Medical History: GERD/Reflux Additional Past Medical History / Comment(s): Bouts of nausea, vomiting for past year; IBS SYMPTOMS History of Any Multi-Drug Resistant Organisms: None Reported Past Surgical History: No Surgical Hx Reported Additional Past Surgical History / Comment(s): EGD Past Anesthesia/Blood Transfusion Reactions: No Reported Reaction Additional Past Anesthesia/Blood Transfusion Reaction / Comment(s): no previous anesthesia Smoking Status: Never smoker - Past Family History Mother Family Medical History: No Reported History Medications and Allergies Home Medications Medication Instructions Recorded Confirmed Type Omeprazole [PriLOSEC] 20 mg PO BID 03/13/20 12/12/21 History Ondansetron Odt [Zofran Odt] 4 mg PO Q8HR PRN #10 tab 05/22/20 12/12/21 Rx Hyoscyamine Sulfate [Levsin] 0.125 mg PO QID 12/11/21 12/12/21 History Medroxyprogesterone Acetate 0 mg SQ Q90D 12/11/21 12/12/21 History [Depo-Subq Provera 104] Allergies Allergy/AdvReac Type Severity Reaction Status Date / Time No Known Allergies Allergy Verified 12/12/21 12:52 Physical Examination - Vital Signs Vital Signs: Vital Signs Temp Pulse Resp BP Pulse Ox 12/12/21 14:40 133 H 17 109/61 100 12/12/21 14:05 103 H 16 153/87 97 12/12/21 13:46 149 H 16 12/12/21 13:40 157 H 16 107/48 97 12/12/21 13:09 97.9 F 81 18 134/77 99 Intake and Output 12/12/21 12/12/21 12/12/21 06:59 14:59 22:59 Intake Total 200 Balance 200 Intake: IV 200 Other: Weight 57.3 kg GENERAL: The patient is lying in bed and is not in acute distress. CHEST: The heart rate is regular rate rhythm. No murmurs to auscultation. LUNG: Clear to auscultation bilaterally no wheezing noted throughout. Not labored breathing. ABDOMEN/GI: Bowel sounds present in all 4 quadrants. No tenderness to palpation throughout. NEUROLOGICAL: Limited because of her condition (was drowsy)/cooperation. Higher mental function: The patient is drowsy but would respond questions. She correctly stated her name. She was able to name few objects (pen and watch). She is slow to responding but was inconsistent. She is following few steps. Cranial nerves: The pupils are round, equal and reactive to light. Has roving of her eyes. No facial weakness. No dysarthria. Motor: The strength is hard to assess individual muscles but was able to lift bilateral uppers above gravity. Normal bulk. Decrease tone throughout. Cerebellum:Unable to assess. Sensation: Unable to assess. Plantars are downgoing bilaterally. THEN PATIENT HAD A SEIZURE-LIKE EPISODE WHILE EXAMINING HER: She had non-rhythmic shaking of extremities that would wax and wane, I opened her eyes and it was midline. Then would stop shaking then would start shaking again and in nonrhytmic fashion. Then upon the Primary team stated she needs to go to ICU, patient immediately opened her eyes and stated I want to go home and not stay. Assessment and Plan Assessment: Had total of 4 seizure-like episodes after her outpatient colonoscopy (I wit nessed the last one and it was definitely non-epileptic in nature. She had nonrhythmic shaking of extremities that waxed and waned and had no post-ictal after her last one when primary team stated she needs to be in ICU). History of seizure and seems more non-epileptic (Had seizure [address] [facility] then was send to [facility] and was told due to anxiety) Anxiety Diarrhea for past 1 year Marijuana use Plan: Ordered EEG stat, lactic acid and prolactin. She would not comply for the EEG test. I will discontinue the testing since her episodes are nonepileptic in nature and per mother she had evaluations for seizures at [facility] and was told it was anxiety related I will not start the patient on anti-epileptic drug since her seizures is nonepi leptic in nature. Recommend consideration of prolonged EEG as outpatient/EMU as outpatient but will defer it to her neurologist. Patient needs to follow-up with neurologist and psychologist/psychiatrist as outpatient dealing with her anxiety and non-epileptic spells. Will defer the rest of medical management to primary team. The plan is discussed with the patient's primary team. Thank you for the consultation. UPDATE: CURRENTLY SHE IS MORE AWAKE, AND RESPONDING AND REFUSING TO STAY. I spoke with primary team and they will observe her for few hours since received so much sedation and if doing better then will discharge her by later today. Otherwise no additional work-up from neurological perspective. Dr. Montesinos is providing neurology coverage this weekend if needed. Time with Patient: Greater than 30
[2021-12-12] MEDS ORDERED: diphenhydrAMINE 50 MG/ML 1 ML VIAL IVP STA (15:45)
[2021-12-12] MEDS ORDERED: LACTATED RINGERS 1,000 ML IV ONE (16:09)
--- NOTE | 2021-12-12 17:01 | P.HPIM ---
History of Present Illness H&P Date: 12/12/21 Patient is a 21 yo F with known pseudoseizures, anxiety, GERD and Chronic diarrhea who presented to the hospital for a colonoscopy. After colonoscopy patient had seizure-like activity 3 that did not fully isauro with benzodiazepines. The first seizure-like episode lasted about 2 minutes, the second and third were shorter than that. She received a total of 2 mg of Ativan at 4 mg of Versed. We're asked to urgently evaluate the patient. I did ask neurology to accompany me to this evaluation. Her mother to provide history. Patient has a known diagnosis of pseudoseizures. She has been having these episodes for about the last year. She had episodes approximately 3 weeks ago and required transfer to [place] for escalation of care. She was at the EEG monitoring unit. She was not discharged on any antiepileptic drugs as they felt she was having pseudoseizures secondary to anxiety. Mother reports that she does not use any alcohol or illicit drugs. She does not smoke tobacco but does use marijuana. Mother also has a history of non-epileptiform seizures. During her time there patient again started having tremulous activity. This consisted of her lifting herself off the bed, rotating hands and circular movement, and flexing at the knees repeatedly. During this time she was unresponsive but would quickly come back to. No vertical nystatin as noted on exam. In between episodes of this activity she would sometimes speak and sometimes not. She kept her eyes closed was withdrawn. It was difficult to get her to answer questions. She was able to name 3 objects. She was unable to wake up and stated that she didn't want to stay in the hospital overnight. These episodes then worsened. She was having active vomiting which did not respond to Zofran. She received 1 dose of Compazine with no improvement in his second dose if no improvement. Unable to obtain a complete review of systems secondary to patient's mentation at this time. Vital signs reviewed General: nontoxic, no distress, appears at stated age Derm: warm, dry Head: atraumatic, normocephalic, symmetric Eyes: EOMI, no lid lag, anicteric sclera, pupils equal round reactive to light ENT: Nose and ears atraumatic, no thrush, no pharyngeal erythema Neck: No thyromegaly, no cervical lymphadenopathy, trachea midline, supple Mouth: no lip lesion, mucus membranes dry Cardiovascular: S1S2 reg, no murmur, positive posterior tibial pulse bilateral, no edema, capillary refill less than 2 seconds Lungs: clear to auscultation bilateral, no rhonchi, no rales, no wheeze, no accessory muscle use Abdominal: soft, nontender to palpation, no guarding, no appreciable organomegaly, normal bowel sounds Ext: no gross muscle atrophy, no contractures Neuro: Moving all 4 extremities independently, PERRL, EOMI, No tongue deviation, anglesmith helper strength equal, no tremors Psych: between lethargic and agitated, oriented, flat affect Assessment/Plan: Intractable pseudoseizures -Neurology recommendations -No need for repeat EEG her head CT at this time as patient was recently underwent extensive evaluation -Case discussed with Dr. Rodriguez was agreed to accept the patient to the ICU as she has been updated in between these episodes -Benadryl as needed for anxiety. Attempt to avoid antibiotic pain -Seizure precautions -Maintain patient safety -Attempt to isauro these episodes with redirection Chronic diarrhea -Negative colonoscopy today -Continue outpatient follow-up GERD -PPI After my evaluation the patient she woke up and became aggressive, security need to be called. She received IV Benadryl with good response. He is again discussed with neurology. They do appear to be pseudo-seizures. We need to continue to monitor the patient due to her intractable nausea and vomiting postoperatively and recovered episodes. She is able to be episode free and is awake and alert she could potentially be discharged later this evening. Surrogate decision-maker: Mother A total of 85 minutes was spent on the care of this complex patient more than 50% of the time was spent in counseling and care coordination. Past Medical History Past Medical History: GERD/Reflux Additional Past Medical History / Comment(s): Bouts of nausea, vomiting for past year; IBS SYMPTOMS, Pseudoseizures History of Any Multi-Drug Resistant Organisms: None Reported Additional Past Surgical History / Comment(s): EGD Past Anesthesia/Blood Transfusion Reactions: No Reported Reaction Additional Past Anesthesia/Blood Transfusion Reaction / Comment(s): no previous anesthesia Smoking Status: Never smoker - Past Family History Mother Additional Family Medical History / Comment(s): non epileptiform seizures Medications and Allergies Home Medications Medication Instructions Recorded Confirmed Type Omeprazole [PriLOSEC] 20 mg PO BID 03/13/20 12/12/21 History Ondansetron Odt [Zofran Odt] 4 mg PO Q8HR PRN #10 tab 05/22/20 12/12/21 Rx Hyoscyamine Sulfate [Levsin] 0.125 mg PO QID 12/11/21 12/12/21 History Medroxyprogesterone Acetate 0 mg SQ Q90D 12/11/21 12/12/21 History [Depo-Subq Provera 104] Allergies Allergy/AdvReac Type Severity Reaction Status Date / Time No Known Allergies Allergy Verified 12/12/21 12:52 Physical Exam Osteopathic Statement: *. No significant issues noted on an osteopathic structural exam other than those noted in the History and Physical/Consult. Vitals: Vital Signs Temp Pulse Resp BP Pulse Ox 12/12/21 16:31 131 H 18 118/74 99 12/12/21 16:05 136 H 18 97 12/12/21 15:52 156 H 152/83 12/12/21 14:40 133 H 17 109/61 100 12/12/21 14:36 124/86 97 12/12/21 14:05 103 H 16 153/87 97 12/12/21 13:46 149 H 16 12/12/21 13:40 157 H 16 107/48 97 12/12/21 13:09 97.9 F 81 18 134/77 99 Intake and Output 12/12/21 12/12/21 12/12/21 06:59 14:59 22:59 Intake Total 1000 Balance 1000 Intake: IV 1000 Other: Weight 57.3 kg
[2021-12-12 17:37] LABS: HCT 39.9 % (34.0-46.0); HGB 12.6 gm/dL (11.4-16.0); Hypochromasia Marked; MCH 27.7 pg (25.0-35.0); MCHC 31.7 g/dL (31.0-37.0); MCV 87.4 fL (80.0-100.0); Mean Platelet Volume 7.5; Platelet Count 377 k/uL (150-450); RBC 4.57 m/uL (3.80-5.40); RDW 15.3 % (11.5-15.5); WBC 10.8 k/uL (3.8-10.6)
[2021-12-12 17:44] LABS: ALT 18 U/L (4-34); AST 24 U/L (14-36); African American GFR (CKD) >90 (>60 ml/min/1.73 sqM); Albumin 4.8 g/dL (3.5-5.0); Alkaline Phosphatase 58 U/L (38-126); Anion Gap 17 mmol/L; Blood Urea Nitrogen 5 mg/dL (7-17); Calcium 9.8 mg/dL (8.4-10.2); Carbon Dioxide 19 mmol/L (22-30); Chloride 105 mmol/L (98-107); Glucose 125 mg/dL (74-99); Non-African American GFR(CKD) >90 (>60 ml/min/1.73 sqM); Phosphorus 3.2 mg/dL (2.5-4.5); Potassium 4.4 mmol/L (3.5-5.1); Sodium 141 mmol/L (137-145); Total Bilirubin 0.9 mg/dL (0.2-1.3); Total Protein 7.5 g/dL (6.3-8.2)
[2021-12-12 17:52] LABS: Glucose,Whole Blood 113 mg/dL (70-110)
[2021-12-12] MEDS ORDERED: diphenhydrAMINE 50 MG/ML 1 ML VIAL IVP PRN (18:27)
[2021-12-12] MEDS ORDERED: PROCHLORPERAZINE INJ 10 MG/2 ML VIAL IVP PRN (18:29)
[2021-12-12] MEDS: ONDANSETRON 4 MG/2 ML VIAL IVP PRN (22:21)
[2021-12-13] MEDS: SODIUM CHLORIDE 0.9% 1,000 ML IV SCH ×3 (02:00→10:23)
[2021-12-13] MEDS: ONDANSETRON 4 MG/2 ML VIAL IVP PRN (04:03)
[2021-12-13] MEDS: HYOSCYAMINE SULFATE 0.125 MG TAB PO SCH ×2 (05:04→10:23)
[2021-12-13] MEDS: PANTOPRAZOLE 40 MG TABLET PO SCH ×2 (05:04→10:23)
[2021-12-13 08:15] LABS: HCT 36.7 % (34.0-46.0); HGB 11.7 gm/dL (11.4-16.0); Hypochromasia Slight; MCH 27.3 pg (25.0-35.0); MCV 85.4 fL (80.0-100.0); Mean Platelet Volume 7.3; Platelet Count 360 k/uL (150-450); RBC 4.29 m/uL (3.80-5.40); RDW 15.5 % (11.5-15.5); WBC 8.5 k/uL (3.8-10.6)
[2021-12-13 08:30] LABS: ALT 14 U/L (4-34); AST 18 U/L (14-36); African American GFR (CKD) >90 (>60 ml/min/1.73 sqM); Albumin 4.3 g/dL (3.5-5.0); Alkaline Phosphatase 42 U/L (38-126); Anion Gap 13 mmol/L; Blood Urea Nitrogen 5 mg/dL (7-17); Calcium 9.4 mg/dL (8.4-10.2); Carbon Dioxide 23 mmol/L (22-30); Chloride 104 mmol/L (98-107); Glucose 101 mg/dL (74-99); Non-African American GFR(CKD) >90 (>60 ml/min/1.73 sqM); Potassium 4.2 mmol/L (3.5-5.1); Sodium 140 mmol/L (137-145); Total Bilirubin 0.8 mg/dL (0.2-1.3); Total Protein 6.6 g/dL (6.3-8.2)
[2021-12-13] MEDS: LACTATED RINGERS 1,000 ML IV SCH (10:18)
--- NOTE | 2021-12-13 10:47 | P.CNPUL ---
History of Present Illness Consult date: 12/13/21 Chief complaint: Pseudoseizures History of present illness: This is a 21-year-old female patient with known history of pseudoseizures. The patient came into the hospital and she was undergoing a colonoscopy. After colonoscopy, she started having seizure-like activity. The patient did not fully isauro following benzodiazepine administration. She was having what seemed to be seizure-like episodes, several of them. She received a total of 4 mg of Versed and 2 mg of Ativan. Following that, the patient became quite drowsy. She came in to the intensive care for further monitoring. She did have some mild lactic acidosis also. The patient was seen by neurology. The patient was found to have no evidence of any focal neurological deficits. No headache. No neck stiffness. No motor weakness in all 4 extremities. For now she has not taken any anticonvulsants. Nausea. No vomiting. No headaches. No confusion. In terms of her blood work, the patient has a white cell count of 8.4 with a hemoglobin of 11.7 and a platelet count of 360. Normal electrolytes. Lactic acidosis is 4.1 20.6. She Tolerated Breakfast This Morning. She Is on IV Fluids at 1 Normal Saline at Rate of 150 ML an Hour. Note that she did have another episode of pseudoseizure last night here in the intensive care unit. This morning, she is looking fine. Review of Systems All systems: negative (Other than the things mentioned above. The patient is a young 41-year-old girl, no anticonvulsants for now.) Past Medical History Past Medical History: GERD/Reflux Additional Past Medical History / Comment(s): Bouts of nausea, vomiting for past year; IBS SYMPTOMS, Pseudoseizures History of Any Multi-Drug Resistant Organisms: None Reported Past Surgical History: No Surgical Hx Reported Additional Past Surgical History / Comment(s): EGD Past Anesthesia/Blood Transfusion Reactions: No Reported Reaction Additional Past Anesthesia/Blood Transfusion Reaction / Comment(s): no previous anesthesia Smoking Status: Never smoker - Past Family History Mother Family Medical History: No Reported History Additional Family Medical History / Comment(s): non epileptiform seizures Medications and Allergies Home Medications Medication Instructions Recorded Confirmed Type Omeprazole [PriLOSEC] 20 mg PO BID 03/13/20 12/12/21 History Ondansetron Odt [Zofran Odt] 4 mg PO Q8HR PRN #10 tab 05/22/20 12/12/21 Rx Hyoscyamine Sulfate [Levsin] 0.125 mg PO QID 12/11/21 12/12/21 History Medroxyprogesterone Acetate 0 mg SQ Q90D 12/11/21 12/12/21 History [Depo-Subq Provera 104] hydrOXYzine pamoate [Vistaril] 25 mg PO TID PRN #90 cap 12/12/21 Rx Allergies Allergy/AdvReac Type Severity Reaction Status Date / Time No Known Allergies Allergy Verified 12/12/21 12:52 Physical Exam Vitals: Vital Signs Temp Pulse Pulse Resp BP BP Pulse Ox 12/13/21 07:00 89 17 12/13/21 06:00 90 18 135/80 12/13/21 05:00 98.8 F 101 H 21 135/80 12/13/21 04:04 107 H 18 12/13/21 03:00 118 H 29 H 12/13/21 02:00 117 H 33 H 12/13/21 01:00 128 H 34 H 12/13/21 00:00 121 H 22 142/94 12/12/21 23:14 107 H 26 H 142/94 100 12/12/21 23:00 120 H 28 H 142/94 100 12/12/21 22:00 131 H 34 H 126/77 96 12/12/21 21:00 116 H 31 H 140/84 96 12/12/21 20:00 120 H 120/71 96 12/12/21 19:00 133 H 126/88 12/12/21 18:30 134 H 18 98 12/12/21 18:10 129 H 126/88 98 12/12/21 18:00 98.4 F 142 H 14 130/89 96 12/12/21 16:31 131 H 18 118/74 99 12/12/21 16:05 136 H 18 97 12/12/21 15:52 156 H 152/83 12/12/21 15:17 98.8 F 12/12/21 14:40 133 H 17 109/61 100 12/12/21 14:36 124/86 97 12/12/21 14:05 103 H 16 153/87 97 12/12/21 13:46 149 H 16 12/12/21 13:40 157 H 16 107/48 97 12/12/21 13:09 97.9 F 81 18 134/77 99 Intake and Output 12/12/21 12/13/21 12/13/21 22:59 06:59 14:59 Intake Total 750 1200 700 Output Total 250 1074 1050 Balance 500 126 -350 Intake: IV 300 450 600 Sodium Chloride 0.9% 1, 300 450 600 000 ml @ 150 mls/hr IV . Q6H40M LUIS DANIEL Rx#:[id number] Intake, IV Titration 450 750 Amount Lactated Ringers 1,000 ml 450 750 @ 20 mls/hr IV .Q24H LUIS DANIEL Rx#:[id number] Oral 100 Output: Urine 099 [id number] Emesis 100 150 Other: Voiding Method Bedside Commode Bedside Commode Bedside Commode Weight 57.3 kg The patient appeared well nourished and normally developed. Vital signs as documented. Head exam is unremarkable. No scleral icterus or corneal arcus noted. Neck is without jugular venous distension, thyromegaly, or carotid bruits. Carotid upstrokes are brisk bilaterally. Lungs are clear to auscultation and percussion. Cardiac exam reveals the PMI to be normally sized and situated. Rhythm is regular. First and second heart sounds normal. No murmurs, rubs or gallops. Abdominal exam reveals normal bowel sounds, no masses, no organomegaly and no aortic enlargement. Extremities are nonedematous and both femoral and ped al pulses are normal. Examination of the skin revealed no evidence of significant rashes, suspicious appearing nevi or other concerning lesions.Neurologically, the patient is awake and alert and the patient does not have any focal neurological deficit. Cranial nerves are essentially intact. Results - Laboratory Findings CBC and BMP: 12/13/21 07:29 12/13/21 07:29 Abnormal lab findings: Abnormal Labs 12/12/21 12/12/21 12/12/21 17:19 17:19 17:19 WBC 10.8 H Carbon Dioxide BUN Glucose POC Glucose (mg/dL) Plasma Lactic Acid Tristin 4.1 H* Prolactin 96.800 H 12/12/21 12/12/21 12/12/21 17:19 17:49 20:06 WBC Carbon Dioxide 19 L BUN 5 L Glucose 125 H POC Glucose (mg/dL) 113 H Plasma Lactic Acid Tristin 2.2 H* Prolactin 12/13/21 12/13/21 12/13/21 00:33 07:29 07:29 WBC Carbon Dioxide BUN 5 L Glucose 101 H POC Glucose (mg/dL) Plasma Lactic Acid Tristin 2.8 H* 0.6 L Prolactin Assessment and Plan Plan: Pseudoseizures , currently inactive and stable and the patient was seen by neurology. No anticonvulsants for now. Mild lactic acidosis, the covered with fluids Symptoms of IBS, completed a colonoscopy and the findings were essentially unremarkable and the patient had a normal-appearing colon. Nausea and emesis, given Zofran and Compazine, the patient was also given IV fluids Chronic diarrhea. Acid reflux Chronic anxiety/depression Plan Transfer this patient to medical floor, possible discharge today. Neurology follow-up.
[2021-12-13 10:58] VITALS: BP 110/63; PULSE 141; RESP 25; TEMP 98.6
--- NOTE | 2021-12-13 12:59 | P.DS ---
Providers Date of admission: 12/12/21 15:00 Expected date of discharge: 12/13/21 Attending physician: Yisel Li Consults: 12/12/21 14:31 Consult Physician Stat Consulting Provider: Juli Marie Consult Reason/Comments: SEIZURES POST COLONOSCOPY. Do you want consulting provider notified?: Yes 12/12/21 15:04 Consult Physician Routine Consulting Provider: Jaziel Rodriguez Consult Reason/Comments: icu management Do you want consulting provider notified?: Yes Consult Physician Urgent Consulting Provider: Vic Hannah Consult Reason/Comments: status Do you want consulting provider notified?: Already Contacted Primary care physician: Stated None Hospital Course: Discharge Diagnosis: Pseudoseizures Chronic diarrhea GERD Hospital Course: Patient is a 21 yo F with known pseudoseizures, anxiety, GERD and Chronic diarrhea who presented to the hospital for a colonoscopy. After colonoscopy patient had seizure-like activity 3 that did not fully isauro with benzodiazepines. The first seizure-like episode lasted about 2 minutes, the s econd and third were shorter than that. She received a total of 2 mg of Ativan at 4 mg of Versed. We're asked to urgently evaluate the patient. I did ask neurology to accompany me to this evaluation. Her mother to provide history. Patient has a known diagnosis of pseudoseizures. She has been having these episodes for about the last year. She had episodes approximately 3 weeks ago and required transfer to [place] for escalation of care. She was at the EEG monitoring unit. She was not discharged on any antiepileptic drugs as they felt she was having pseudoseizures secondary to anxiety. Mother reports that she does not use any alcohol or illicit drugs. She does not smoke tobacco but does use marijuana. Mother also has a history of non-epileptiform seizures. Neurology has evaluated her and confirmed that her seizures where nonepileptic in nature and anxiety related, they did not recommend any antiepileptic drug and recommended prolonged EEG as outpatient and follow-up with her neurologist and psychiatrist. Patient seen and examined at bedside. Vital signs reviewed and stable. General: [nontoxic], [no distress], [appears at stated age] Derm: [warm], [dry] Head: [atraumatic], [normocephalic], [symmetric] Eyes: [EOMI], [no lid lag], [anicteric sclera] Mouth: [no lip lesion], [mucus membranes moist] Cardiovascular: [S1S2 reg], [no murmur] Lungs: [CTA bilateral], [no rhonchi, no rales] , [no accessory muscle use] Abdominal: [soft], [ nontender to palpation], [no guarding], [no appreciable organomegaly] Ext: [no gross muscle atrophy], [no edema], [no contractures] Neuro: [ CN II-XI grossly intact], [no focal neuro deficits] Psych: [Alert], [oriented], [appropriate affect] A total of 50 minutes of time were spent preparing this complex discharge summary. Plan - Discharge Summary Discharge Rx Participant: No New Discharge Prescriptions: New hydrOXYzine pamoate [Vistaril] 25 mg PO TID PRN #90 cap PRN Reason: Anxiety Continue Omeprazole [PriLOSEC] 20 mg PO BID Medroxyprogesterone Acetate [Depo-Subq Provera 104] 0 mg SQ Q90D Ondansetron Odt [Zofran ODT] 4 mg PO Q8HR PRN #10 tab PRN Reason: Nausea Hyoscyamine Sulfate [Levsin] 0.125 mg PO QID Discharge Medication List Omeprazole [PriLOSEC] 20 mg PO BID 03/13/20 [History] Ondansetron Odt [Zofran ODT] 4 mg PO Q8HR PRN #10 tab 05/22/20 [Rx] Hyoscyamine Sulfate [Levsin] 0.125 mg PO QID 12/11/21 [History] Medroxyprogesterone Acetate [Depo-Subq Provera 104] 0 mg SQ Q90D 12/11/21 [History] hydrOXYzine pamoate [Vistaril] 25 mg PO TID PRN #90 cap 12/12/21 [Rx] Follow up Appointment(s)/Referral(s): [facility] [NON-STAFF] - 1 Week Patient Instructions/Handouts: Seizure/Epilepsy Discharge Instructions & Follow-Up Discharge Disposition: HOME SELF-CARE
== END 2021-12-13 12:31 | disposition home or self-care (01) ==
LOC: ORWHC2ENDO 11:22 → 2SICU 15:00 → INTOOBSV 15:00 → 2SICU 15:48 → UNDODISIN 12-13 13:58
PROVIDERS: ADMIT Internal Medicine; ATTEND Internal Medicine Gastroenterology
DX: R56.9 Unspecified convulsions (principal); K52.9 Noninfective gastroenteritis and colitis, unspecified; E87.20 Acidosis, unspecified; R59.0 Localized enlarged lymph nodes; K21.9 Gastro-esophageal reflux disease without esophagitis; D72.829 Elevated white blood cell count, unspecified; F41.9 Anxiety disorder, unspecified; F12.90 Cannabis use, unspecified, uncomplicated; Z82.0 Family history of epilepsy and other diseases of the nervous system; Z79.899 Other long term (current) drug therapy
CPT/HCPCS: 96376 ×2; 96374; 96375; 88305; 80053 ×2; 83605 ×2; 83735; 84100; 85027 ×2; 84146; 45380; G0378 ×2; J2250; J2060; J1200; J0780; J2405 ×2; J2704

== ENCOUNTER 2023-12-26 13:42 | Emergency (ER) | payer OTHER ==
[2023-12-26 13:59] VITALS: PULSE 68; RESP 18
--- NOTE | 2023-12-26 14:10 | ED ---
Wound/Laceration HPI - General Chief Complaint: Wound/Laceration Stated Complaint: Face Injury Time Seen by Provider: 12/26/23 14:08 Source: patient, RN notes reviewed Mode of arrival: ambulatory Limitations: no limitations - History of Present Illness Initial Comments: 23-year-old female presenting to the ER with a chief complaint of a laceration. Patient states she was playing disc golf and accidentally got hit in the forehead with a Frisbee. She denies loss of consciousness. No blood thinning medications. Tetanus is up-to-date. Patient denies any other injuries or complaints. - Related Data Home Medications Medication Instructions Recorded Confirmed Omeprazole [PriLOSEC] 20 mg PO BID 03/13/20 12/12/21 Hyoscyamine Sulfate [Levsin] 0.125 mg PO QID 12/11/21 12/12/21 Medroxyprogesterone Acetate 0 mg SQ Q90D 12/11/21 12/12/21 [Depo-Subq Provera 104] Previous Rx's Medication Instructions Recorded Ondansetron Odt [Zofran ODT] 4 mg PO Q8HR PRN #10 tab 05/22/20 hydrOXYzine pamoate [Vistaril] 25 mg PO TID PRN #90 cap 12/12/21 Allergies Allergy/AdvReac Type Severity Reaction Status Date / Time No Known Allergies Allergy Verified 12/26/23 13:59 Review of Systems ROS Statement: Those systems with pertinent positive or pertinent negative responses have been documented in the HPI. ROS Other: All systems not noted in ROS Statement are negative. Past Medical History Past Medical History: GERD/Reflux Additional Past Medical History / Comment(s): Bouts of nausea, vomiting for past year; IBS SYMPTOMS, Pseudoseizures History of Any Multi-Drug Resistant Organisms: None Reported Past Surgical History: No Surgical Hx Reported Additional Past Surgical History / Comment(s): EGD Past Anesthesia/Blood Transfusion Reactions: No Reported Reaction Additional Past Anesthesia/Blood Transfusion Reaction / Comment(s): no previous anesthesia Past Psychological History: ADD/ADHD, Anxiety, Depression, PTSD Past Alcohol Use History: None Reported Past Drug Use History: Marijuana - Past Family History Mother Family Medical History: No Reported History Additional Family Medical History / Comment(s): non epileptiform seizures General Exam Limitations: no limitations General appearance: alert, in no apparent distress Head exam: Present: normocephalic, other (3 cm gaping laceration to left forehead minimal active bleeding.) Eye exam: Present: normal appearance, PERRL, EOMI. Absent: scleral icterus, conjunctival injection, periorbital swelling Pupils: Present: normal accommodation ENT exam: Present: normal exam, normal oropharynx, mucous membranes moist, TM's normal bilaterally Neck exam: Present: normal inspection. Absent: tenderness, meningismus, lymphadenopathy Respiratory exam: Present: normal lung sounds bilaterally. Absent: respiratory distress, wheezes, rales, rhonchi, stridor Cardiovascular Exam: Present: regular rate, normal rhythm, normal heart sounds. Absent: systolic murmur, diastolic murmur, rubs, gallop, clicks Neurological exam: Present: alert, oriented X3, CN II-XII intact Skin exam: Present: warm, dry, intact, normal color. Absent: rash Course Vital Signs 12/26/23 12/26/23 13:56 14:58 Temperature 98.4 F 97.9 F Pulse Rate 68 68 Respiratory 18 18 Rate Blood Pressure 118/77 109/64 O2 Sat by Pulse 100 99 Oximetry - Reevaluation(s) Reevaluation #1: 12/26/23 14:10 [place] head trauma rule negative. GCS 15. Shared decision making utilized. Risk-benefit ratio discussed. Patient decided to forego CT scan at this time. Medical Decision Making - Medical Decision Making Was pt. sent in by a medical professional or institution (, PA, SYRUP FILTERER, urgent care, hospital, or correction...) When possible be specific @ -No Did you speak to anyone other than the patient for history (EMS, parent, family, police, friend...)? What history was obtained from this source @ -No Did you review nursing and triage notes (agree or disagree)? Why? @ -I reviewed and agree with nursing and triage notes Were old charts reviewed (outside hosp., previous admission, EMS record, old EKG, old radiological studies, urgent care reports/EKG's, correction records)? Report findings @ -No old charts were reviewed Differential Diagnosis (chest pain, altered mental status, abdominal pain women, abdominal pain men, vaginal bleeding, weakness, fever, dyspnea, syncope, headache, dizziness, GI bleed, back pain, seizure, CVA, palpatations, mental health, musculoskeletal)? @ -Contusion, hematoma, intracranial hemorrhage, skull fracture, laceration, concussion this list is not meant to be all-inclusive EKG interpreted by me (3pts min.). @ -None done X-rays interpreted by me (1pt min.). @ -None done CT interpreted by me (1pt min.). @ -None done U/S interpreted by me (1pt. min.). @ -None done What testing was considered but not performed or refused? (CT, X-rays, U/S, labs)? Why? @ -CT brain considered but not performed. [place] head trauma rule negative. GCS 15. Risk-benefit ratio discussed. Shared decision making utilized. Patient decided forego CT scan at this time. What meds were considered but not given or refused? Why? @ -None Did you discuss the management of the patient with other professionals (professionals i.e. , PA, SYRUP FILTERER, lab, RT, psych nurse, social work nurse, it network engineer, teacher, nuclear officer, bottle caser)? Give summary @ -No Was smoking cessation discussed for >3mins.? @ -No Was critical care preformed (if so, how long)? @ -No Were there social determinants of health that impacted care today? How? (Homelessness, low income, unemployed, alcoholism, drug addiction, transportation, low edu. Level, literacy, decrease access to med. care, nursing home, rehab)? @ -No Was there de-escalation of care discussed even if they declined (Discuss DNR or withdrawal of care, Hospice)? DNR status @ -No What co-morbidities impacted this encounter? (DM, HTN, Smoking, COPD, CAD, Cancer, CVA, ARF, Chemo, Hep., AIDS, mental health diagnosis, sleep apnea, morbid obesity)? @ -None Was patient admitted / discharged? Hospital course, mention meds given and route, prescriptions, significant lab abnormalities, going to OR and other pertinent info. @ -Discharge. 23-year-old female presented to the ER with a chief complaint of laceration. History and physical exam completed. Vitals within normal limits. Patient in no signs of acute distress. There is a 3 cm gaping laceration to left forehead. Minimal active bleeding. No acute neurological findings on exam. No raccoon eyes or Ashley sign. Patient's tetanus is up-to-date. Wound closed, see note above. I advised suture removal in 3 to 5 days. Suture care discussed. Strict return parameters discussed. Patient discharged in stable condition with follow-up to PCP. Patient verbally expressed understanding and agreement with care plan. Case discussed with ED attending, Dr. Franco. Undiagnosed new problem with uncertain prognosis? @ -No Drug Therapy requiring intensive monitoring for toxicity (Heparin, Nitro, Insulin, Cardizem)? @ -No Were any procedures done? @ -No Diagnosis/symptom? @ -Laceration/minor head trauma Acute, or Chronic, or Acute on Chronic? @ -Acute Uncomplicated (without systemic symptoms) or Complicated (systemic symptoms)? @ -Uncomplicated Side effects of treatment? @ -No Exacerbation, Progression, or Severe Exacerbation? @ -No Poses a threat to life or bodily function? How? (Chest pain, [place], [place], pneumonia, PE, COPD, DKA, ARF, appy, cholecystitis, CVA, Diverticulitis, Homicidal, Suicidal, threat to staff... and all critical care pts) @ -No Disposition Clinical Impression: Minor head trauma, Laceration Disposition: HOME SELF-CARE Condition: Stable Instructions (If sedation given, give patient instructions): Care For Your Stitches (DC), Head Laceration (ED) Additional Instructions: Have sutures removed in 3 to 5 days. Keep area clean and dry. Monitor for sig ns of infection including surrounding redness, drainage or swelling. Return to the ER for any new or worsening concerns. Is patient prescribed a controlled substance at d/c from ED?: No Referrals: None,Stated [Primary Care Provider] - 1-2 days Forms: Area PCPs Time of Disposition: 14:53
[2023-12-26] MEDS: LIDOCAINE 1% INJ 10MG/ML (20 ML MDV) SQ ONE (14:14)
[2023-12-26 14:59] VITALS: BP 109/64; TEMP 97.9
== END 2023-12-26 14:58 | disposition home or self-care (01) ==
LOC: EC 13:42
CPT/HCPCS: 99282